=== PATIENT | female | born 1990 | race Caucasian/White ===

== ENCOUNTER 2020-07-02 02:05 | Emergency (ER) | payer MEDICAID ==
--- NOTE | 2020-07-02 02:07 | ED ---
General Adult HPI - General Stated complaint: FALL Time Seen by Provider: 07/02/20 02:06 - History of Present Illness Initial comments: Xiomara is a 29-year-old female who presents to the emergency department today via private vehicle for evaluation after apparent syncopal episode at home. History is provided by the patient and her boyfriend at bedside area patient reports that she had approximately 20 mg of medical marijuana and then was drinking alcohol. Boyfriend states that they were then having intercourse when his penis slipped out of her vagina and accidentally penetrated her anus, the patient immediately yelled out in pain, jumped out of bed to run to the bathroom and passed out on the floor, striking her head on the carpeted floor. Boyfriend states she was briefly unconscious which prompted him to call 911, however they refused transport to the hospital via EMS and arrived via private vehicle. Patient has no significant PMH. - Related Data Allergies Allergy/AdvReac Type Severity Reaction Status Date / Time No Known Allergies Allergy Verified 07/02/20 02:13 Review of Systems ROS Statement: Those systems with pertinent positive or pertinent negative responses have been documented in the HPI. ROS Other: All systems not noted in ROS Statement are negative. General Exam - General Exam Comments Initial Comments: Physical Exam GENERAL: Patient is well-developed and well-nourished. Patient is nontoxic and well- hydrated and is in no distress. HENT: Normocephalic, Atraumatic. TMs normal bilaterally no hemotympanum No fitzpatrick signs, no raccoon eyes There is a superficial laceration to the tragus of the left ear with some control bleeding, blood was cleaned from the canal no active bleeding EYES: PERRL, EOMI PULMONARY: Unlabored respirations. No audible rales rhonchi or wheezing was noted. CARDIOVASCULAR: There is a regular rate and rhythm without any murmurs gallops or rubs. ABDOMEN: Soft and nontender with normal bowel sounds. SKIN: Skin is clear with no lesions or rashes and otherwise unremarkable. : Deferred NEUROLOGIC: Patient is alert and oriented x3. Moving all extremities spontaneously MUSCULOSKELETAL: Normal extremities with adequate strength and full range of motion. No lower extremity swelling or edema. No calf tenderness. PSYCHIATRIC: Normal psychiatric evaluation. Course Vital Signs 08/25/20 08/25/20 08/25/20 02:10 03:00 04:00 Temperature 97.8 F Pulse Rate 89 70 82 Respiratory 18 14 14 Rate Blood Pressure 98/67 86/54 95/53 O2 Sat by Pulse 97 99 Oximetry 07/02/20 05:41 Temperature Pulse Rate 80 Respiratory 14 Rate Blood Pressure 107/64 O2 Sat by Pulse 99 Oximetry EKG Findings - EKG Comments: EKG Findings:: EKG was obtained due to complaint of seek a B, EKG was obtained at 2:31 AM, rate 78 rhythm is sinus there is a normal axis, there are normal intervals, NV 172, QRS 88, QTC 465 there are no acute ST elevations or depressions no evidence of acute ischemia, infarction or malignant arrhythmia. Medical Decision Making - Medical Decision Making The patient was seen and evaluated, history is obtained from the patient and boyfriend at bedside Patient admitted to ingesting edible marijuana, drinking alcohol and then she had a apparently vasovagal syncopal episode. She she did strike her head on the ground when this happened. She does have some bleeding from the tragus of the left ear, TM is normal there is no fitzpatrick signs or raccoon eyes Labs and head CT were ordered EKG was ordered due to complaint of PE, EKG had no abnormal findings Labs resulted with elevated alcohol level no other abnormalities Despite receiving 2 L of fluid patient r refused to provide a urine sample. I discussed with the patient that we cannot rule out or sensory UTI however she's comfortable the plan for discharge home without a urinalysis. Patient remained awake alert oriented, stable vital signs are her stay in the emergency department. Patient stable for discharge home. Boyfriend at bedside aware that the patient is still intoxicated and is comfortable taking her home at this time. - Lab Data Result diagrams: 07/02/20 02:31 07/02/20 02:31 Lab Results 07/02/20 07/02/20 Range/Units 02:31 02:31 WBC 6.1 (3.8-10.6) k/uL RBC 4.50 (3.80-5.40) m/uL Hgb 14.3 (11.4-16.0) gm/dL Hct 42.6 (34.0-46.0) % MCV 94.6 (80.0-100.0) fL MCH 31.7 (25.0-35.0) pg MCHC 33.5 (31.0-37.0) g/dL RDW 12.7 (11.5-15.5) % Plt Count 353 (150-450) k/uL Neutrophils % 60 % Lymphocytes % 32 % Monocytes % 4 % Eosinophils % 1 % Basophils % 1 % Neutrophils # 3.7 (1.3-7.7) k/uL Lymphocytes # 2.0 (1.0-4.8) k/uL Monocytes # 0.2 (0-1.0) k/uL Eosinophils # 0.0 (0-0.7) k/uL Basophils # 0.1 (0-0.2) k/uL Sodium 142 (137-145) mmol/L Potassium 3.6 (3.5-5.1) mmol/L Chloride 108 H (98-107) mmol/L Carbon Dioxide 24 (22-30) mmol/L Anion Gap 10 mmol/L BUN 5 L (7-17) mg/dL Creatinine 0.70 (0.52-1.04) mg/dL Est GFR (CKD-EPI)AfAm >90 (>60 ml/min/1.73 sqM) Est GFR (CKD-EPI)NonAf >90 (>60 ml/min/1.73 sqM) Glucose 120 H (74-99) mg/dL Calcium 9.1 (8.4-10.2) mg/dL Total Bilirubin 0.3 (0.2-1.3) mg/dL AST 25 (14-36) U/L ALT 8 (4-34) U/L Alkaline Phosphatase 73 (38-126) U/L Total Protein 7.7 (6.3-8.2) g/dL Albumin 4.7 (3.5-5.0) g/dL Serum Alcohol 203 H* mg/dL Disposition Clinical Impression: Vasovagal syncope, Alcohol intoxication, Marijuana intoxication Disposition: HOME SELF-CARE Condition: Stable Is patient prescribed a controlled substance at d/c from ED?: No Referrals: None,Stated [Primary Care Provider] - 1-2 days
[2020-07-02 02:13] VITALS: TEMP 97.8
[2020-07-02] MEDS ORDERED: SODIUM CHLORIDE 0.9% 1,000 ML IV STA (02:16)
[2020-07-02 02:54] LABS: Basophils # (A) 0.1 k/uL (0-0.2); Basophils % (A) 1 %; Eosinophils % (A) 1 %; HCT 42.6 % (34.0-46.0); HGB 14.3 gm/dL (11.4-16.0); Lymphocytes % (A) 32 %; MCH 31.7 pg (25.0-35.0); MCHC 33.5 g/dL (31.0-37.0); MCV 94.6 fL (80.0-100.0); Mean Platelet Volume 7.5; Monocytes # (A) 0.2 k/uL (0-1.0); Monocytes % (A) 4 %; Neutrophils # (A) 3.7 k/uL (1.3-7.7); Neutrophils % (A) 60 %; Platelet Count 353 k/uL (150-450); RDW 12.7 % (11.5-15.5); WBC 6.1 k/uL (3.8-10.6)
--- NOTE | 2020-07-02 02:59 | XR ---
EXAMINATION TYPE: XR chest 2V DATE OF EXAM: 07/02/2020 COMPARISON: NONE HISTORY: Syncope TECHNIQUE: 2 views FINDINGS: Heart and mediastinum are normal. Lungs are clear. Diaphragm is normal. Bony thorax appears normal. IMPRESSION: Normal chest.
[2020-07-02 03:08] LABS: ALT 8 U/L (4-34); AST 25 U/L (14-36); African American GFR (CKD) >90 (>60 ml/min/1.73 sqM); Albumin 4.7 g/dL (3.5-5.0); Alkaline Phosphatase 73 U/L (38-126); Anion Gap 10 mmol/L; Blood Urea Nitrogen 5 mg/dL (7-17); Calcium 9.1 mg/dL (8.4-10.2); Carbon Dioxide 24 mmol/L (22-30); Chloride 108 mmol/L (98-107); Glucose 120 mg/dL (74-99); Non-African American GFR(CKD) >90 (>60 ml/min/1.73 sqM); Potassium 3.6 mmol/L (3.5-5.1); Sodium 142 mmol/L (137-145); Total Bilirubin 0.3 mg/dL (0.2-1.3); Total Protein 7.7 g/dL (6.3-8.2)
--- NOTE | 2020-07-02 03:10 | CT ---
EXAMINATION TYPE: CT brain wo con DATE OF EXAM: 07/02/2020 COMPARISON: None HISTORY: Syncope, Fall CT DLP: 1087.4 mGycm Automated exposure control for dose reduction was used. The ventricles and sulci appear normal. There is no mass effect nor midline shift. There is no sign o f intracranial hemorrhage. Calvarium is intact. There is no evidence of cerebral edema. Skull base is intact. IMPRESSION: Normal unenhanced head CT scan.
[2020-07-02 03:15] LABS: Alcohol 203 mg/dL
[2020-07-02 03:25] VITALS: RESP 14
[2020-07-02] MEDS ORDERED: SODIUM CHLORIDE 0.9% 1,000 ML IV ONE (04:47)
[2020-07-02 05:43] VITALS: BP 107/64; PULSE 80
== END 2020-07-02 05:53 | disposition home or self-care (01) ==
LOC: EC 02:05
DX: S01.312A Laceration without foreign body of left ear, initial encounter (principal); R55 Syncope and collapse; F10.129 Alcohol abuse with intoxication, unspecified; F12.929 Cannabis use, unspecified with intoxication, unspecified; Y90.9 Presence of alcohol in blood, level not specified; W18.09XA Striking against other object with subsequent fall, initial encounter
CPT/HCPCS: 36415; 70450; 71046; 80053; 80320; 85025; 93005; 96360; 96361; 99284

== ENCOUNTER 2023-07-17 21:14 | Inpatient (IN) | payer MEDICAID, OTHER ==
[2023-07-17] MEDS ORDERED: SODIUM CHLORIDE 0.9% 1,000 ML IV ONE (22:08)
[2023-07-17 22:27] LABS: Appearance,Urine Clear (Clear); Bilirubin,Urine Negative (Negative); Blood,Urine Negative (Negative); Color,Urine Light Yellow; Glucose,Urine (UA) Negative (Negative); Ketones,Urine Negative (Negative); Leukocyte Esterase,Urine Small (Negative); Mucus,Urine Occasional /hpf; Nitrite,Urine Negative (Negative); Protein,Urine Negative (Negative); RBC,Urine 1 /hpf (0-5); Specific Gravity,Urine 1.015 (1.001-1.035); Squamous Epithelial Cell,Urine 4 /hpf (0-4); Urobilinogen,Urine <2.0 mg/dL (<2.0); WBC,Urine 5 /hpf (0-5)
[2023-07-17 22:36] LABS: Amphetamine Screen,Urine Detected (NotDetected); Barbiturate Screen,Urine Not Detected (NotDetected); Benzodiazepines Screen,Urine Not Detected (NotDetected); Cocaine Screen,Urine Not Detected (NotDetected); Methadone Screen, Urine Not Detected (NotDetected); Opiate Screen,Urine Not Detected (NotDetected); Oxycodone Screen, Urine Not Detected (NotDetected); Phencyclidine Screen,Urine Not Detected (NotDetected); Tricyclic Antidepressant,Urine Not Detected (NotDetected); Urn Cannabinoid Scrn Detected (NotDetected)
[2023-07-17 22:40] LABS: Basophils % (A) 1 %; Eosinophils # (A) 0.2 k/uL (0-0.7); Eosinophils % (A) 2 %; HGB 13.1 gm/dL (11.4-16.0); Lymphocytes # (A) 2.1 k/uL (1.0-4.8); Lymphocytes % (A) 31 %; MCH 30.5 pg (25.0-35.0); MCHC 32.8 g/dL (31.0-37.0); MCV 92.9 fL (80.0-100.0); Mean Platelet Volume 7.9; Monocytes # (A) 0.4 k/uL (0-1.0); Monocytes % (A) 6 %; Neutrophils # (A) 3.8 k/uL (1.3-7.7); Neutrophils % (A) 58 %; Platelet Count 316 k/uL (150-450); RBC 4.31 m/uL (3.80-5.40); RDW 12.5 % (11.5-15.5); WBC 6.6 k/uL (3.8-10.6)
[2023-07-17 22:47] LABS: African American GFR (CKD) >90 (>60 ml/min/1.73 sqM); Anion Gap 10 mmol/L; Blood Urea Nitrogen 14 mg/dL (7-17); Calcium 9.8 mg/dL (8.4-10.2); Carbon Dioxide 26 mmol/L (22-30); Chloride 102 mmol/L (98-107); Glucose 88 mg/dL (74-99); Non-African American GFR(CKD) >90 (>60 ml/min/1.73 sqM); Potassium 4.3 mmol/L (3.5-5.1); Sodium 138 mmol/L (137-145)
--- NOTE | 2023-07-18 09:17 | ED ---
Altered Mental Status HPI <Robby Fernandes - Last Filed: 07/18/23 15:22> - General Source: police Mode of arrival: EMS Limitations: altered mental status <Sharri Jovel - Last Filed: 07/24/23 17:15> - General Chief Complaint: Altered Mental Status Stated Complaint: Mental Health Time Seen by Provider: 07/17/23 21:20 - History of Present Illness Initial Comments: 32-year-old female with past medical history of depression who presents to the emergency department with abnormal behavior. Police to accompany the patient. States that she was outside wandering. She was with a another younger gentleman who denied that he had known the patient for more than one day. Patient cannot answer any questions appropriately she demonstrates tangential speech. Has difficulty concentrating and conversing. They were unsure if the patient had been drinking or used any drugs. She denies use of either. They did call her grandmother who states that this is not the normal mentation for the patient. The patient remarks that she thinks she is dehydrated. Also reports to concern for a urinary tract infection. no other alleviating, precipitating or modifying factors (Sharri Jovel) - Related Data Home Medications Medication Instructions Recorded Confirmed Dextroamphetamine/Amphetamine 10 mg PO DAILY@1200 07/18/23 07/18/23 [Adderall] Dextroamphetamine/Amphetamine 20 mg PO DAILY 07/18/23 07/18/23 [Adderall] Escitalopram [Lexapro] 20 mg PO DAILY 07/18/23 07/18/23 Omeprazole [PriLOSEC] 20 mg PO HS 07/18/23 07/18/23 Allergies Allergy/AdvReac Type Severity Reaction Status Date / Time No Known Allergies Allergy Verified 07/02/20 02:13 Review of Systems ROS Other: All systems not noted in ROS Statement are negative. <Robby Fernandes - Last Filed: 07/18/23 15:22> ROS Other: All systems not noted in ROS Statement are negative. <Sharri Jovel - Last Filed: 07/24/23 17:15> ROS Statement: Those systems with pertinent positive or pertinent negative responses have been documented in the HPI. Past Medical History Past Medical History: No Reported History History of Any Multi-Drug Resistant Organisms: None Reported Past Surgical History: No Surgical Hx Reported Past Psychological History: No Psychological Hx Reported Smoking Status: Former smoker Past Alcohol Use History: Occasional Past Drug Use History: Marijuana <Sharri Jovel - Last Filed: 07/24/23 17:15> General Exam Limitations: altered mental status General appearance: alert, anxious Head exam: Present: atraumatic, normocephalic, normal inspection Eye exam: Present: normal appearance, PERRL, EOMI. Absent: scleral icterus, conjunctival injection, periorbital swelling ENT exam: Present: normal exam, mucous membranes moist Neck exam: Present: normal inspection. Absent: tenderness, meningismus, lymphadenopathy Respiratory exam: Present: normal lung sounds bilaterally. Absent: respiratory distress, wheezes, rales, rhonchi, stridor Cardiovascular Exam: Present: regular rate, normal rhythm, normal heart sounds. Absent: systolic murmur, diastolic murmur, rubs, gallop, clicks Psychiatric exam: Present: anxious, manic <Sharri Jovel - Last Filed: 07/24/23 17:15> Course Vital Signs 07/18/23 07/18/23 02:00 15:20 Temperature 98.1 F 98.0 F Pulse Rate 65 67 Respiratory 16 18 Rate Blood Pressure 108/71 99/61 O2 Sat by Pulse 65 L 98 Oximetry Medical Decision Making - Lab Data Result diagrams: 07/17/23 22:07 07/17/23 22:07 <Robby Fernandes - Last Filed: 07/18/23 15:22> - Lab Data Result diagrams: 07/17/23 22:07 07/17/23 22:07 <Sharri Jovel Tia - Last Filed: 07/24/23 17:15> - Medical Decision Making Patient was seen by mental health services with plans for admission. I did discuss this with mental nurse. Patient reevaluated by myself. Positive clinical certificate completed. Patient will be admitted to psychiatric floor. (Robby Fernandes) Was pt. sent in by a medical professional or institution (, PA, SLATE WORKER, urgent care, hospital, or half-way...) When possible be specific @ -Police Did you speak to anyone other than the patient for history (EMS, parent, family, police, friend...)? What history was obtained from this source @ -Police provide history Did you review nursing and triage notes (agree or disagree)? Why? @ -I reviewed and agree with nursing and triage notes Were old charts reviewed (outside hosp., previous admission, EMS record, old EKG, old radiological studies, urgent care reports/EKG's, half-way records)? Report findings @ -No old charts were reviewed Differential Diagnosis (chest pain, altered mental status, abdominal pain women, abdominal pain men, vaginal bleeding, weakness, fever, dyspnea, syncope, headache, dizziness, GI bleed, back pain, seizure, CVA, palpatations, mental health, musculoskeletal)? @ -Differential Mental Health Depression, anxiety, bipolar, psychosis, schizophrenia, borderline personality, situational depression, adjustment disorder, behavioral disorder, brain tumor, malingering, substance abuse, encephalopathy, medication reaction, dementia, hypothyroidism, degenerative neurologic disorder, lupus.... This is not meant to be all-inclusive list EKG interpreted by me (3pts min.). @ -Not done X-rays interpreted by me (1pt min.). @ -None done CT interpreted by me (1pt min.). @ -None done U/S interpreted by me (1pt. min.). @ -None done What testing was considered but not performed or refused? (CT, X-rays, U/S, labs )? Why? @ -None What meds were considered but not given or refused? Why? @ -None Did you discuss the management of the patient with other professionals (professionals i.e. , PA, SLATE WORKER, lab, RT, psych nurse, psychosocial rehabilitation counselor, foot and ankle surgeon, teacher, helicopter officer, onsite case manager)? Give summary @ -Spoke with EPS who will evaluate the patient tomorrow Was smoking cessation discussed for >3mins.? @ -No Was critical care preformed (if so, how long)? @ -No Were there social determinants of health that impacted care today? How? (Homelessness, low income, unemployed, alcoholism, drug addiction, transportation, low edu. Level, literacy, decrease access to med. care, assisted, rehab)? @ -No Was there de-escalation of care discussed even if they declined (Discuss DNR or withdrawal of care, Hospice)? DNR status @ -No What co-morbidities impacted this encounter? (DM, HTN, Smoking, COPD, CAD, Cancer, CVA, ARF, Chemo, Hep., AIDS, mental health diagnosis, sleep apnea, morbid obesity)? @ -None Was patient admitted / discharged? Hospital course, mention meds given and route, prescriptions, significant lab abnormalities, going to OR and other pertinent info. @ -Upon arrival patient was placed into room 14. Thorough history and physical exam is performed. Patient is medically clear for evaluation. She is awaiting EPS evaluation in stable condition Undiagnosed new problem with uncertain prognosis? @ -yes Drug Therapy requiring intensive monitoring for toxicity (Heparin, Nitro, Insulin, Cardizem)? @ -No Were any procedures done? @ -No Diagnosis/symptom? @ -acute manic behavior Acute, or Chronic, or Acute on Chronic? @ -acute Uncomplicated (without systemic symptoms) or Complicated (systemic symptoms)? @ -complicated Side effects of treatment? @ -No Exacerbation, Progression, or Severe Exacerbation? @ -No Poses a threat to life or bodily function? How? (Chest pain, [place], [place], pneumonia, PE, COPD, DKA, ARF, appy, cholecystitis, CVA, Diverticulitis, Homicidal, Suicidal, threat to staff... and all critical care pts) @ -No (Sharri Jovel) - Lab Data Lab Results 07/17/23 07/17/23 07/17/23 Range/Units 22:07 22:07 22:07 WBC 6.6 (3.8-10.6) k/uL RBC 4.31 (3.80-5.40) m/uL Hgb 13.1 (11.4-16.0) gm/dL Hct 40.0 (34.0-46.0) % MCV 92.9 (80.0-100.0) fL MCH 30.5 (25.0-35.0) pg MCHC 32.8 (31.0-37.0) g/dL RDW 12.5 (11.5-15.5) % Plt Count 316 (150-450) k/uL MPV 7.9 Neutrophils % 58 % Lymphocytes % 31 % Monocytes % 6 % Eosinophils % 2 % Basophils % 1 % Neutrophils # 3.8 (1.3-7.7) k/uL Lymphocytes # 2.1 (1.0-4.8) k/uL Monocytes # 0.4 (0-1.0) k/uL Eosinophils # 0.2 (0-0.7) k/uL Basophils # 0.0 (0-0.2) k/uL Sodium (137-145) mmol/L Potassium (3.5-5.1) mmol/L Chloride (98-107) mmol/L Carbon Dioxide (22-30) mmol/L Anion Gap mmol/L BUN (7-17) mg/dL Creatinine (0.52-1.04) mg/dL Est GFR (CKD-EPI)AfAm (>60 ml/min/1.73 sqM) Est GFR (CKD-EPI)NonAf (>60 ml/min/1.73 sqM) Glucose (74-99) mg/dL Estimated Ave Glu mg/dL mg/dL Hemoglobin A1c (<=6.0) % Calcium (8.4-10.2) mg/dL TSH (0.465-4.680) mIU/L Urine Color Light Yellow Urine Appearance Clear (Clear) Urine pH 6.0 (5.0-8.0) Ur Specific [place] 1.015 (1.001-1.035) Urine Protein Negative (Negative) Urine Glucose (UA) Negative (Negative) Urine Ketones Negative (Negative) Urine Blood Negative (Negative) Urine Nitrite Negative (Negative) Urine Bilirubin Negative (Negative) Urine Urobilinogen <2.0 (<2.0) mg/dL Ur Leukocyte Esterase Small H (Negative) Urine RBC 1 (0-5) /hpf Urine WBC 5 (0-5) /hpf Ur Squamous Epith Cells 4 (0-4) /hpf Urine Mucus Occasional H (None) /hpf Urine HCG, Qual Not Detected (Not Detectd) Urine Opiates Screen Not Detected (NotDetected) Ur Oxycodone Screen Not Detected (NotDetected) Urine Methadone Screen Not Detected (NotDetected) Ur Propoxyphene Screen Not Detected (NotDetected) Ur Barbiturates Screen Not Detected (NotDetected) U Tricyclic Antidepress Not Detected (NotDetected) Ur Phencyclidine Scrn Not Detected (NotDetected) Ur Amphetamines Screen Detected H (NotDetected) U Methamphetamines Scrn Not Detected (NotDetected) U Benzodiazepines Scrn Not Detected (NotDetected) Urine Cocaine Screen Not Detected (NotDetected) U Marijuana (THC) Screen Detected H (NotDetected) Coronavirus (PCR) (Not Detectd) 07/17/23 07/17/23 07/17/23 Range/Units 22:07 22:07 22:07 WBC (3.8-10.6) k/uL RBC (3.80-5.40) m/uL Hgb (11.4-16.0) gm/dL Hct (34.0-46.0) % MCV (80.0-100.0) fL MCH (25.0-35.0) pg MCHC (31.0-37.0) g/dL RDW (11.5-15.5) % Plt Count (150-450) k/uL MPV Neutrophils % % Lymphocytes % % Monocytes % % Eosinophils % % Basophils % % Neutrophils # (1.3-7.7) k/uL Lymphocytes # (1.0-4.8) k/uL Monocytes # (0-1.0) k/uL Eosinophils # (0-0.7) k/uL Basophils # (0-0.2) k/uL Sodium 138 (137-145) mmol/L Potassium 4.3 (3.5-5.1) mmol/L Chloride 102 (98-107) mmol/L Carbon Dioxide 26 (22-30) mmol/L Anion Gap 10 mmol/L BUN 14 (7-17) mg/dL Creatinine 0.76 (0.52-1.04) mg/dL Est GFR (CKD-EPI)AfAm >90 (>60 ml/min/1.73 sqM) Est GFR (CKD-EPI)NonAf >90 (>60 ml/min/1.73 sqM) Glucose 88 (74-99) mg/dL Estimated Ave Glu mg/dL 111 mg/dL Hemoglobin A1c 5.5 (<=6.0) % Calcium 9.8 (8.4-10.2) mg/dL TSH 1.320 (0.465-4.680) mIU/L Urine Color Urine Appearance (Clear) Urine pH (5.0-8.0) Ur Specific [place] (1.001-1.035) Urine Protein (Negative) Urine Glucose (UA) (Negative) Urine Ketones (Negative) Urine Blood (Negative) Urine Nitrite (Negative) Urine Bilirubin (Negative) Urine Urobilinogen (<2.0) mg/dL Ur Leukocyte Esterase (Negative) Urine RBC (0-5) /hpf Urine WBC (0-5) /hpf Ur Squamous Epith Cells (0-4) /hpf Urine Mucus (None) /hpf Urine HCG, Qual (Not Detectd) Urine Opiates Screen (NotDetected) Ur Oxycodone Screen (NotDetected) Urine Methadone Screen (NotDetected) Ur Propoxyphene Screen (NotDetected) Ur Barbiturates Screen (NotDetected) U Tricyclic Antidepress (NotDetected) Ur Phencyclidine Scrn (NotDetected) Ur Amphetamines Screen (NotDetected) U Methamphetamines Scrn (NotDetected) U Benzodiazepines Scrn (NotDetected) Urine Cocaine Screen (NotDetected) U Marijuana (THC) Screen (NotDetected) Coronavirus (PCR) (Not Detectd) 07/18/23 Range/Units 15:22 WBC (3.8-10.6) k/uL RBC (3.80-5.40) m/uL Hgb (11.4-16.0) gm/dL Hct (34.0-46.0) % MCV (80.0-100.0) fL MCH (25.0-35.0) pg MCHC (31.0-37.0) g/dL RDW (11.5-15.5) % Plt Count (150-450) k/uL MPV Neutrophils % % Lymphocytes % % Monocytes % % Eosinophils % % Basophils % % Neutrophils # (1.3-7.7) k/uL Lymphocytes # (1.0-4.8) k/uL Monocytes # (0-1.0) k/uL Eosinophils # (0-0.7) k/uL Basophils # (0-0.2) k/uL Sodium (137-145) mmol/L Potassium (3.5-5.1) mmol/L Chloride (98-107) mmol/L Carbon Dioxide (22-30) mmol/L Anion Gap mmol/L BUN (7-17) mg/dL Creatinine (0.52-1.04) mg/dL Est GFR (CKD-EPI)AfAm (>60 ml/min/1.73 sqM) Est GFR (CKD-EPI)NonAf (>60 ml/min/1.73 sqM) Glucose (74-99) mg/dL Estimated Ave Glu mg/dL mg/dL Hemoglobin A1c (<=6.0) % Calcium (8.4-10.2) mg/dL TSH (0.465-4.680) mIU/L Urine Color Urine Appearance (Clear) Urine pH (5.0-8.0) Ur Specific [place] (1.001-1.035) Urine Protein (Negative) Urine Glucose (UA) (Negative) Urine Ketones (Negative) Urine Blood (Negative) Urine Nitrite (Negative) Urine Bilirubin (Negative) Urine Urobilinogen (<2.0) mg/dL Ur Leukocyte Esterase (Negative) Urine RBC (0-5) /hpf Urine WBC (0-5) /hpf Ur Squamous Epith Cells (0-4) /hpf Urine Mucus (None) /hpf Urine HCG, Qual (Not Detectd) Urine Opiates Screen (NotDetected) Ur Oxycodone Screen (NotDetected) Urine Methadone Screen (NotDetected) Ur Propoxyphene Screen (NotDetected) Ur Barbiturates Screen (NotDetected) U Tricyclic Antidepress (NotDetected) Ur Phencyclidine Scrn (NotDetected) Ur Amphetamines Screen (NotDetected) U Methamphetamines Scrn (NotDetected) U Benzodiazepines Scrn (NotDetected) Urine Cocaine Screen (NotDetected) U Marijuana (THC) Screen (NotDetected) Coronavirus (PCR) Not Detected (Not Detectd) Disposition Is patient prescribed a controlled substance at d/c from ED?: No Time of Disposition: 15:23 <Robby Fernandes - Last Filed: 07/18/23 15:22> <Sharri Jovel - Last Filed: 07/24/23 17:15> Clinical Impression: [place] Disposition: TRANSFER TO PSYCH HOSP/UNIT
[2023-07-18] MEDS ORDERED: ACETAMINOPHEN TAB 325 MG TAB PO PRN (16:20)
[2023-07-18] MEDS ORDERED: haloperidoL 5 MG TAB PO PRN (16:23)
[2023-07-18] MEDS ORDERED: LORazepam 2 MG/ML INJ IM PRN (16:23)
[2023-07-18] MEDS ORDERED: HALOPERIDOL LACTATE 5 MG/ML 1 ML VIAL IM PRN (16:23)
[2023-07-18] MEDS: MAG HYDROX/AL HYDROX/SIMETH 30 ML CUP PO PRN (18:01)
[2023-07-19] MEDS: ESCITALOPRAM 20 MG TAB PO SCH (08:34)
[2023-07-19] MEDS: NICOTINE 14MG/24HR PATCH TRANSDERM SCH (08:35)
--- NOTE | 2023-07-19 11:54 | P.HP ---
Psychiatric H&P - . H&P Date: 07/19/23 History & Physical: Allergies Allergy/AdvReac Type Severity Reaction Status Date / Time No Known Allergies Allergy Verified 07/02/20 02:13 Vital Signs Temp 97.4 F L 07/19/23 08:42 Pulse 89 07/19/23 08:42 Resp 15 07/19/23 08:42 BP 116/68 07/19/23 08:42 Pulse Ox 100 07/19/23 08:42 FiO2 Intake & Output 07/18/23 07/19/23 07/19/23 18:59 06:59 18:59 Weight 63.049 kg Laboratory Last Values WBC 6.6 k/uL (3.8-10.6) 07/17/23 22:07 RBC 4.31 m/uL (3.80-5.40) 07/17/23 22:07 Hgb 13.1 gm/dL (11.4-16.0) 07/17/23 22:07 Hct 40.0 % (34.0-46.0) 07/17/23 22:07 MCV 92.9 fL (80.0-100.0) 07/17/23 22:07 MCH 30.5 pg (25.0-35.0) 07/17/23 22:07 MCHC 32.8 g/dL (31.0-37.0) 07/17/23 22:07 RDW 12.5 % (11.5-15.5) 07/17/23 22:07 Plt Count 316 k/uL (150-450) 07/17/23 22:07 MPV 7.9 07/17/23 22:07 Neutrophils % 58 % 07/17/23 22:07 Lymphocytes % 31 % 07/17/23 22:07 Monocytes % 6 % 07/17/23 22:07 Eosinophils % 2 % 07/17/23 22:07 Basophils % 1 % 07/17/23 22:07 Neutrophils # 3.8 k/uL (1.3-7.7) 07/17/23 22:07 Lymphocytes # 2.1 k/uL (1.0-4.8) 07/17/23 22:07 Monocytes # 0.4 k/uL (0-1.0) 07/17/23 22:07 Eosinophils # 0.2 k/uL (0-0.7) 07/17/23 22:07 Basophils # 0.0 k/uL (0-0.2) 07/17/23 22:07 Sodium 138 mmol/L (137-145) 07/17/23 22:07 Potassium 4.3 mmol/L (3.5-5.1) 07/17/23 22:07 Chloride 102 mmol/L (98-107) 07/17/23 22:07 Carbon Dioxide 26 mmol/L (22-30) 07/17/23 22:07 Anion Gap 10 mmol/L 07/17/23 22:07 BUN 14 mg/dL (7-17) 07/17/23 22:07 Creatinine 0.76 mg/dL (0.52-1.04) 07/17/23 22:07 Est GFR (CKD-EPI)AfAm >90 (>60 ml/min/1.73 sqM) 07/17/23 22:07 Est GFR (CKD-EPI)NonAf >90 (>60 ml/min/1.73 sqM) 07/17/23 22:07 Glucose 88 mg/dL (74-99) 07/17/23 22:[address] Glu mg/dL 111 mg/dL 07/17/23 22:07 Hemoglobin A1c 5.5 % (<=6.0) 07/17/23 22:07 Calcium 9.8 mg/dL (8.4-10.2) 07/17/23 22:07 TSH 1.320 mIU/L (0.465-4.680) 07/17/23 22:07 Urine Color Light Yellow 07/17/23 22:07 Urine Appearance Clear (Clear) 07/17/23 22:07 Urine pH 6.0 (5.0-8.0) 07/17/23 22:07 Ur Specific [place] 1.015 (1.001-1.035) 07/17/23 22:07 Urine Protein Negative (Negative) 07/17/23 22:07 Urine Glucose (UA) Negative (Negative) 07/17/23 22:07 Urine Ketones Negative (Negative) 07/17/23 22:07 Urine Blood Negative (Negative) 07/17/23 22:07 Urine Nitrite Negative (Negative) 07/17/23 22:07 Urine Bilirubin Negative (Negative) 07/17/23 22:07 Urine Urobilinogen <2.0 mg/dL (<2.0) 07/17/23 22:07 Ur Leukocyte Esterase Small (Negative) H 07/17/23 22:07 Urine RBC 1 /hpf (0-5) 07/17/23 22:07 Urine WBC 5 /hpf (0-5) 07/17/23 22:07 Ur Squamous Epith Cells 4 /hpf (0-4) 07/17/23 22:07 Urine Mucus Occasional /hpf (None) H 07/17/23 22:07 Urine HCG, Qual Not Detected (Not Detectd) 07/17/23 22:07 Urine Opiates Screen Not Detected (NotDetected) 07/17/23 22:07 Ur Oxycodone Screen Not Detected (NotDetected) 07/17/23 22:07 Urine Methadone Screen Not Detected (NotDetected) 07/17/23 22:07 Ur Propoxyphene Screen Not Detected (NotDetected) 07/17/23 22:07 Ur Barbiturates Screen Not Detected (NotDetected) 07/17/23 22:07 U Tricyclic Antidepress Not Detected (NotDetected) 07/17/23 22:07 Ur Phencyclidine Scrn Not Detected (NotDetected) 07/17/23 22:07 Ur Amphetamines Screen Detected (NotDetected) H 07/17/23 22:07 U Methamphetamines Scrn Not Detected (NotDetected) 07/17/23 22:07 U Benzodiazepines Scrn Not Detected (NotDetected) 07/17/23 22:07 Urine Cocaine Screen Not Detected (NotDetected) 07/17/23 22:07 U Marijuana (THC) Screen Detected (NotDetected) H 07/17/23 22:07 Coronavirus (PCR) Not Detected (Not Detectd) 07/18/23 15:22 07/19/23 11:46 IDENTIFYING DATA: Patient is a 32-year-old female currently lives with her grandmother in a house, she is single, 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 HPI: Patient presented to the hospital urgently for depression and altered mental status. Patient apparently was wandering in the streets, she was picked up by police, she was having poor concentration. Patient was petitioned by principal gifts officer and clinically certed. Patient was difficult to redirect during conversation, was gazing around the room several times, tried to read words off of the wall. She was getting at her skin and fairly distracted. She claimed that she was brought in for a "safety check" she had very poor insight poor judgment and poor reality testing. She claims that she was feeling depressed and having suicidal thoughts for coming in the hospital. She was wandering around downtown and states that "it's okay to wander". She claims that she was talking to someone however did not ever was. She believes that she was friends with the special police. She claims that she was "just dreaming" and was fairly illogical and bizarre. She poor concentration during the interview. She was denying any paranoia, was fairly superficial, was argumentative about medications and did not want to take them. Claims that her sleep and appetite are fair. Patient denies any suicidal or homicidal ideations intent or plan. At this time patient denies any auditory or visual hallucinations. Patient denies any flight of ideas racing thoughts and increased in goal directed behavior. Patient admits to using marijuana heavily approximately 3-4 joints a day. States that she also uses mushrooms however was fairly vague about how often she uses it. Denies any other recreational drug use PAST PSYCHIATRIC HISTORY: Patient states that she has a history of depression and anxiety. Patient is currently on Lexapro 20 mg daily. Patient denies any previous psychiatric hospitalizations. Patient denies any psychiatric outpatient follow-up, never did state that she is to follow-up with the nurse practitioner at [facility]. Patient denies any history of suicide attempts in the past. PMH:Past Medical History: No Reported History History of Any Multi-Drug Resistant Organisms: None Reported Past Surgical History: No Surgical Hx Reported Past Psychological History: No Psychological Hx Reported Smoking Status: Former smoker Past Alcohol Use History: Occasional Past Drug Use History: Marijuana ALLERGIES: as per EMR CHEMICAL DEPENDENCY HISTORY: as per HPI FAMILY PSYCHIATRIC/SUBSTANCE USE HISTORY: Claims that her mother has bipolar she believes SOCIAL HISTORY: Patient was born and raised in [place] [facility], states that she pleaded to bachelor's degree, 1 in imageloop arts and 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 She denies any legal history, clear that she currently lives with her grandmother in a house, she is single, she does not have any kids. 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 MENTAL STATUS EXAM: General Appearance: Patient appears to be thin, disheveled hair, bizarre and responding to internal stimuli, stated age is alert, difficult to redirect. Patient appears to have poor hygiene and grooming. Behavior: Patient is seated without any agitated behavior. Argumentative at times and responding to internal stimuli Speech: Patient's speech is fluent and nonpressured. [place], vague and superficial Mood/Affect: Patient reports their mood is depressed, affect is congruent and constricted. Suicidality/Homicidality: Patient denies having any homicidal ideation intent or plan. Denies any suicidal ideations intent or plan Perceptions: Patient denies any visual hallucinations and denies any auditory hallucinations Though content/process: Illogical, loose associations. Bizarre. Memory and concentration: AOX3, grossly intact for the purposes of this session. Cannot spell "WORLD" backwards Judgment and insight: poor STRENGTHS/WEAKNESSES: strength is that patient is resilient. Weakness is that p atient has poor judgment and is impulsive INTELLECT: average IMPRESSIONS: Psychosis unspecified Hallucinogen abuse Cannabis use disorder severe History of depression and anxiety PLAN: -Patient is admitted under involuntary status to MHU for stabilization of psychiatric symptoms and safety. Patient has not signed adult voluntary form and medication consent and is placed in patient's chart. A second certification was completed and along with petition will be filed for court. -Medications : Will start patient on Risperdal 0.5 mg twice a day for psychosis, continue with Lexapro 20 mg daily for mood/anxiety. -Ativan and Haldol PRN for agitation/aggression -Patient was informed of the risks, benefits and side effects of the medication -Internal Medicine consult to perform medical evaluation and physical. -NRT - not need to this patient does not smoke -SW on board for discharge planning. Encourage patient to participate in groups to work on coping skills. Will await deferral and court date.
[2023-07-19] MEDS: risperiDONE 0.5 MG TAB PO SCH ×2 (12:44→21:33)
--- NOTE | 2023-07-19 15:19 | P.CONS ---
History of Present Illness - Reason for Consult Consult date: 07/19/23 Medical history of depression - History of Present Illness This is a 32-year-old female who presented to the emergency department with the police under position for bizarre behavior and roaming the streets. Patient was involuntarily signed in to [address]. under petition for psychiatric evaluation. Patient does report she has history of depression and takes antidepressant medications and follows with Dr. Dominguez in the outpatient setting. Patient reports she recently used marijuana along with mushrooms and denies alcohol use since 2020 and reports she does not smoke cigarettes but does use vaping device. When asked if patient was suicidal or thoughts of wanting to harm herself she said "not today". During conversation patient denied chest pain or shortness of breath and exam showed lung sounds were clear to auscultation. Patient reports she had a rash on her back that has resolved and she was not sure if it was shingles. There are no vesicles or abnormalities noted on the back during exam. Review Of Systems: Constitutional: No fever, no chills, no night sweats. No weight change. No weakness, fatigue or lethargy. No daytime sleepiness. EENT: No headache. No blurred vision or double vision, no loss of vision. No loss of Hearing, no ringing in the ears, no dizziness. No nasal drainage or congestion. No epistaxis. No sore throat. Lungs: No shortness of breath, cough, no sputum production. No wheezing. Cardiovascular: No chest pain, no lower extremity edema. No palpitations. No paroxysmal nocturnal dyspnea. No orthopnea. No lightheadedness or dizziness. No syncopal episodes. Abdominal: No abdominal pain. No nausea, vomiting. No diarrhea. No constipation. No bloody or tarry stools.. No loss of appetite. Genitourinary: No dysuria, increased frequency, urgency. No urinary retention. Musculoskeletal: No myalgias. No muscle weakness, no gait dysfunction, no frequent falls. No back pain. No neck pain. Integumentary: No wounds, no lesions. No rash or pruritus. No unusual br uising. No change in hair or nails. Neurologic: No aphasia. No facial droop. No change in mentation. No head injury. No headache. No paralysis. No paresthesia. Psychiatric: Reports increased depression, reports some anxiety. No mood swings. Endocrine: No abnormal blood sugars. No weight change. No excessive sweating or thirst. No cold intolerance. PHYSICAL EXAMINATION: GENERAL: The patient is alert and oriented x3, will not provide any eye contact, short conversation, Well developed, well nourished. HEENT: Pupils are round and equally reacting to light. EOMI. no scleral icterus. No conjunctival pallor. Normocephalic, atraumatic. No pharyngeal erythema. No thyromegaly. CARDIOVASCULAR: S1 and S2 muffled PULMONARY: Breath sounds clear to auscultation with no wheezing or rhonchi noted. ABDOMEN: soft. Nontender on exam. non-distended, normoactive bowel sounds. No palpable organomegaly. MUSCULOSKELETAL: No joint swelling or deformity. EXTREMITIES: No cyanosis, clubbing, or pedal edema. NEUROLOGICAL: Gross neurological examination did not reveal any focal deficits. SKIN: No rashes. Assessment: acute psychosis history of depression suicidal ideation Former smoker, reports continues to use a vape THC use Psychedelic use, including mushrooms Full code Plan: Patient has involuntary been petitioned by the police for bizarre behavior and walking around and did report some suicidal ideation with history of depression. All medications reviewed and resumed Encourage the patient to attend group therapy sessions and compliance with medications Patient follow-up with primary care provider on discharge in compliance with psychiatric evaluation Thank you kindly for this consultation. The impression and plan of care has been dictated by Jolanta River, nurse practitioner as directed. Dr. Carmela MD I have performed a history and examination and MDM of this patient, discussed the same with the dictator, and agree with the dictator's assessment and plan as written ,documented as a scribe. Based on total visit time, I have performed more than 50% of the visit. Any additional findings or plans will be noted. Past Medical History Past Medical History: No Reported History History of Any Multi-Drug Resistant Organisms: None Reported Past Surgical History: No Surgical Hx Reported Past Psychological History: No Psychological Hx Reported Smoking Status: Former smoker Past Alcohol Use History: Occasional Past Drug Use History: Marijuana Medications and Allergies Home Medications Medication Instructions Recorded Confirmed Type Dextroamphetamine/Amphetamine 10 mg PO DAILY@1200 07/18/23 07/18/23 History [Adderall] Dextroamphetamine/Amphetamine 20 mg PO DAILY 07/18/23 07/18/23 History [Adderall] Escitalopram [Lexapro] 20 mg PO DAILY 07/18/23 07/18/23 History Omeprazole [PriLOSEC] 20 mg PO HS 07/18/23 07/18/23 History Allergies Allergy/AdvReac Type Severity Reaction Status Date / Time No Known Allergies Allergy Verified 07/02/20 02:13 Physical Exam Vitals: Vital Signs Temp Pulse Pulse Resp BP BP Pulse Ox 07/19/23 08:42 97.4 F L 89 15 116/68 100 07/18/23 16:49 97.7 F 100 17 126/77 100 07/18/23 15:20 98.0 F 67 18 99/61 98 Intake and Output 07/18/23 07/19/23 07/19/23 22:59 06:59 14:59 Other: Weight 63.049 kg Results CBC & Chem 7: 07/17/23 22:07 07/17/23 22:07 Assessment and Plan Time with Patient: Less than 30
[2023-07-19 15:52] VITALS: BMI 23.1
[2023-07-19] MEDS: MAG HYDROX/AL HYDROX/SIMETH 30 ML CUP PO PRN (20:13)
[2023-07-20] MEDS: ESCITALOPRAM 20 MG TAB PO SCH ×2 (08:57→20:48)
[2023-07-20] MEDS: risperiDONE 0.5 MG TAB PO SCH (08:57)
[2023-07-20] MEDS: NICOTINE 14MG/24HR PATCH TRANSDERM SCH (08:58)
--- NOTE | 2023-07-20 11:07 | P.PN ---
Progress Note - Text Progress Note Date: 07/20/23 Interval history: Patient was seen this morning sleeping in her bed and was awoken by poem writer. she continues to be difficult to redirect and mildly bizarre today with regards to interaction and behavior. she asked if poem writer can speak with her in her office. She continues to be responding to internal stimuli, looking around the room at times. She asked the poem writer can "read to palms". She claims that she is feeling fairly tired with the medications and has been sleeping most of the day. She is denying any other adverse reactions. Continues to have fairly poor insight and judgment. Continues to be off topic and illogical at times. She states that she is agreeable to continue with medications, has not spoken with her criminal defense attorney. He spoke more about the court process. She is denying any depression or anxiety at this time. Her insight and judgment remain poor. She has not been going to many groups. She is denying any auditory or visual hallucinations, denying any suicidal or homicidal ideations intent or plan. Mental status examination: General Appearance: Patient appears to be thin, disheveled hair, bizarre and responding to internal stimuli, stated age is alert. Patient appears to have poor hygiene and grooming. Behavior: Patient is seated without any agitated behavior. Bizarre and responding to internal stimuli Speech: Patient's speech is fluent and nonpressured. [place], vague Mood/Affect: Patient reports their mood is "a bit better", affect is congruent and constricted. Suicidality/Homicidality: Patient denies having any homicidal ideation intent or plan. Denies any suicidal ideations intent or plan Perceptions: Patient denies any visual hallucinations and denies any auditory hallucinations Though content/process: Illogical, loose associations. Bizarre. Memory and concentration: AOX3, grossly intact for the purposes of this session Judgment and insight: poor IMPRESSIONS: Psychosis unspecified Hallucinogen abuse Cannabis use disorder severe History of depression and anxiety PLAN: -Patient is admitted under involuntary status to MHU for stabilization of psychiatric symptoms and safety. Patient has not signed adult voluntary form and medication consent and is placed in patient's chart. A second certification was completed and along with petition will be filed for court. -Medications : Change Risperdal 1 mg daily at bedtime for psychosis, change Lexapro 20 mg daily at bedtime for mood/anxiety. -Ativan and Haldol PRN for agitation/aggression -NRT - not need to this patient does not smoke -SW on board for discharge planning. Encourage patient to participate in groups to work on coping skills. Will await deferral and court date.
[2023-07-20] MEDS ORDERED: risperiDONE 1 MG TAB PO SCH (21:00)
[2023-07-20] MEDS: MAGNESIUM HYDROXIDE 2,400 MG/30 ML CUP PO PRN (21:55)
[2023-07-21] MEDS: NICOTINE 14MG/24HR PATCH TRANSDERM SCH (08:29)
[2023-07-21 12:40] LABS: Appearance,Urine Clear (Clear); Bilirubin,Urine Negative (Negative); Blood,Urine Negative (Negative); Color,Urine Colorless; Glucose,Urine (UA) Negative (Negative); Ketones,Urine Negative (Negative); Leukocyte Esterase,Urine Negative (Negative); Nitrite,Urine Negative (Negative); PH, Urine 6.5 (5.0-8.0); Protein,Urine Negative (Negative); Specific Gravity,Urine 1.008 (1.001-1.035); Urobilinogen,Urine <2.0 mg/dL (<2.0)
--- NOTE | 2023-07-21 14:42 | P.PN ---
Progress Note - Text Progress Note Date: 07/21/23 Interval history: Patient was seen wandering the hallways after she showered today. She claims that she wants more time to speak with caption writer today. She continues to act bizarrely during the interview, looking around the room, was intrusive with caption writer and asked him to "give me a hug". She continues to have fairly poor insight and judgment. She was illogical at times during the interview and bizarre behaviors. She did appear to be less sedated today and has been taking her medications. She asked more about the court process which was explained to her. States that she is sleeping fairly at nighttime. She is denying any depression or anxiety at this time. Her insight and judgment remain poor. She has not been going to many groups. She is denying any auditory or visual hallucinations, denying any suicidal or homicidal ideations intent or plan. Mental status examination: General Appearance: Patient appears to be thin, disheveled hair, bizarre and responding to internal stimuli, mildly improivng , stated age is alert. Patient appears to have improving hygiene and grooming. Behavior: Patient is seated without any agitated behavior. Bizarre and responding to internal stimuli, improving mildly. intrusive Speech: Patient's speech is fluent and nonpressured. [place], vague Mood/Affect: Patient reports their mood is "ok", affect is congruent Suicidality/Homicidality: Patient denies having any homicidal ideation intent or plan. Denies any suicidal ideations intent or plan Perceptions: Patient denies any visual hallucinations and denies any auditory hallucinations Though content/process: Illogical, loose associations. Bizarre. Memory and concentration: AOX3, grossly intact for the purposes of this session Judgment and insight: poor IMPRESSIONS: Psychosis unspecified Hallucinogen abuse Cannabis use disorder severe History of depression and anxiety PLAN: -Patient is admitted under involuntary status to MHU for stabilization of psychiatric symptoms and safety. Patient has not signed adult voluntary form and medication consent and is placed in patient's chart. -Medications : increase Risperdal 2 mg daily at bedtime for psychosis, Lexapro 20 mg daily at bedtime for mood/anxiety. -Ativan and Haldol PRN for agitation/aggression -NRT - not need to this patient does not smoke -SW on board for discharge planning. Encourage patient to participate in groups to work on coping skills. patient apparently deferred with her claim attorney.
[2023-07-21] MEDS: risperiDONE 2 MG TAB PO SCH (20:03)
[2023-07-21] MEDS: ESCITALOPRAM 20 MG TAB PO SCH (20:03)
[2023-07-21] MEDS: MAGNESIUM HYDROXIDE 2,400 MG/30 ML CUP PO PRN (20:04)
[2023-07-21] MEDS: LORazepam 1 MG TAB PO PRN (21:42)
[2023-07-22] MEDS: NICOTINE 14MG/24HR PATCH TRANSDERM SCH (07:46)
--- NOTE | 2023-07-22 11:14 | P.PN ---
Progress Note - Text Progress Note Date: 07/22/23 Interval history: Patient was seen wandering the hallways today and was agreeable to seek a writ er. Patient was sitting quietly in the phone area with her cup of water and was not on the phone. She continues to act bizarrely however mild improvement. She states that she misses her "bullies" referring to her kittens and also her grandmother. She continues to have fairly poor insight into why she came to the hospital and minimized her drug use. She did appear to be less sedated today and has been taking her medications. She claims that she was able to sleep fairly last night with increase in Risperdal. She is denying any depression or anxiety at this time. Her insight and judgment remain poor. She has not been going to many groups. Continues to be illogical at times and ask bizarre questions or keno writer/runner. She is denying any auditory or visual hallucinations, denying any suicidal or homicidal ideations intent or plan. Mental status examination: General Appearance: Patient appears to be thin, disheveled hair, bizarre and responding to internal stimuli, mildly improivng , stated age is alert. Patient appears to have improving hygiene and grooming. Behavior: Patient is seated without any agitated behavior. Bizarre and responding to internal stimuli less today, improving mildly. less intrusive Speech: Patient's speech is fluent and nonpressured. [place], vague Mood/Affect: Patient reports their mood is "okay", affect is congruent somewhat tearful today Suicidality/Homicidality: Patient denies having any homicidal ideation intent or plan. Denies any suicidal ideations intent or plan Perceptions: Patient denies any visual hallucinations and denies any auditory hallucinations Though content/process: Illogical, loose associations. Bizarre, improving mildly Memory and concentration: AOX3, grossly intact for the purposes of this session Judgment and insight: poor IMPRESSIONS: Psychosis unspecified Hallucinogen abuse Cannabis use disorder severe History of depression and anxiety PLAN: -Patient is admitted under involuntary status to MHU for stabilization of psychiatric symptoms and safety. Patient has not signed adult voluntary form and medication consent and is placed in patient's chart. -Medications : Risperdal 2 mg daily at bedtime for psychosis, Lexapro 20 mg daily at bedtime for mood/anxiety. -Ativan and Haldol PRN for agitation/aggression -NRT - not need to this patient does not smoke -SW on board for discharge planning. Encourage patient to participate in groups to work on coping skills. patient apparently deferred with her carpet yarn winder operator. will continue to observe and see if patient improves more psychiatrically back to her baseline. hopeful for discharge early next week
[2023-07-22] MEDS: LORazepam 1 MG TAB PO PRN (20:29)
[2023-07-22] MEDS: risperiDONE 2 MG TAB PO SCH (20:29)
[2023-07-22] MEDS: ESCITALOPRAM 20 MG TAB PO SCH (20:29)
[2023-07-23] MEDS: NICOTINE 14MG/24HR PATCH TRANSDERM SCH (08:42)
--- NOTE | 2023-07-23 12:23 | P.PN ---
Progress Note - Text Progress Note Date: 07/23/23 Interval history: Patient was seen wandering the hallways today and was agreeable to seek a writ er. Patient continues to be mildly bizarre with sports writer. Not responding to internal stimuli today. She claims that she is feeling "tired" during the day and we spoke about her medications and the side effects. She claims that she took 10 Ativan last night due to difficulties not being able to sleep however patient was asked if she wanted to try another medication and patient states that "I'm getting enough sleep". She is denying any depression or anxiety at this time. Her insight and judgment remain poor however improving midlly. She has not been going to many groups. continue to ask bizarre questions or sports writer. She is denying any auditory or visual hallucinations, denying any suicidal or homicidal ideations intent or plan. Mental status examination: General Appearance: Patient appears to be thin, disheveled hair, bizarre and not responding to internal stimuli, stated age is alert. Patient appears to have improving hygiene and grooming. Behavior: Patient is seated without any agitated behavior. less Bizarre, less intrusive Speech: Patient's speech is fluent and nonpressured. [facility], vague Mood/Affect: Patient reports their mood is "tired", affect is congruent Suicidality/Homicidality: Patient denies having any homicidal ideation intent or plan. Denies any suicidal ideations intent or plan Perceptions: Patient denies any visual hallucinations and denies any auditory hallucinations Though content/process: more logical. Bizarre, improving mildly Memory and concentration: AOX3, grossly intact for the purposes of this session Judgment and insight: poor, improving mildly IMPRESSIONS: Psychosis unspecified Hallucinogen abuse Cannabis use disorder severe History of depression and anxiety PLAN: -Patient is admitted under involuntary status to [facility] for stabilization of psychiatric symptoms and safety. Patient has not signed adult voluntary form and medication consent and is placed in patient's chart. -Medications : Risperdal 2 mg daily at bedtime for psychosis, Lexapro 20 mg daily at bedtime for mood/anxiety. added melatonin qhs for sleep -Ativan and Haldol PRN for agitation/aggression -NRT - not need to this patient does not smoke -SW on board for discharge planning. Encourage patient to participate in groups to work on coping skills. patient apparently deferred with her immigration attorney. will continue to observe and see if patient improves more psychiatrically back to her baseline. hopeful for discharge wednesday if she improves over the weekend
[2023-07-23] MEDS: risperiDONE 2 MG TAB PO SCH (20:34)
[2023-07-23] MEDS: ESCITALOPRAM 20 MG TAB PO SCH (20:34)
[2023-07-23] MEDS: MELATONIN 5 MG TABLET PO SCH (20:35)
[2023-07-24] MEDS: LORazepam 1 MG TAB PO PRN (02:10)
[2023-07-24] MEDS: NICOTINE 14MG/24HR PATCH TRANSDERM SCH (08:58)
--- NOTE | 2023-07-24 10:06 | P.PN ---
Subjective Progress Note Date: 07/24/23 Principal diagnosis: IMPRESSIONS: Psychosis unspecified she almost comes across like she is mildly manic he could be due to hallucinogen abuse and Cannabis use disorder severe History of depression and anxiety Interval history: Patient was seen wandering the hallways today and was agreeable to talk to the travel writer. Patient is mildly bizarre with travel writer. She wandered around the room looking out the window and making comments about whether it was warm outside or not. She rambled off topic and gave excessive irrelevant detail to simple questions. She could not explain why she is in a psychiatric hospital. She does not seem to be responding to internal stimuli . She claims that she is feeling "tired" during the day and has some dry mouth and constipation. Seems that she is sensitive to anticholinergic side effects. However her dose of risperidone is modest.. She claims that she took Ativan last night due to having someone come into her room and wake her up in the middle of the night. She is going to groups. She notices everything in the room has to make a c omment about it. For example she knows of my first name sounded similar to Verity so she has some dementia and truth and she had to make a comment about. She is denying any auditory or visual hallucinations, denying any suicidal or homicidal ideations intent or plan. Mental status examination: She looks a little tired reasonable self-care General Appearance: Patient appears to be her stated age, is alert. Behavior: Patient is seated without any agitated behavior. Speech: Patient's speech is fluent and nonpressured. [place], vague Mood/Affect: Patient reports their mood is "tired", affect is congruent Suicidality/Homicidality: Patient denies having any homicidal ideation intent or plan. Denies any suicidal ideations intent or plan Perceptions: Patient denies any visual hallucinations and denies any auditory hallucinations Though content/process: Bizarre, improving mildly Memory and concentration: AOX3, grossly intact for the purposes of this session Judgment and insight: poor, improving mildly IMPRESSIONS: Psychosis unspecified she almost comes across like she is mildly manic he could be due to hallucinogen abuse and Cannabis use disorder severe History of depression and anxiety PLAN: No change in medication at this time she is having some mild anticholinergic reactions to risperidone her she needs something for racing and rambling thoughts -Patient is admitted under involuntary status to [facility] for stabilization of psychiatric symptoms and safety. Patient has not signed adult voluntary form and medication consent and is placed in patient's chart. -Medications : Risperdal 2 mg daily at bedtime for psychosis, Lexapro 20 mg daily at bedtime for mood/anxiety. added melatonin qhs for sleep -Ativan and Haldol PRN for agitation/aggression -NRT - not need to this patient does not smoke -SW on board for discharge planning. Encourage patient to participate in groups to work on coping skills. patient apparently deferred with her manufacturing project manager. will continue to observe and see if patient improves more psychiatrically back to her baseline. hopeful for discharge wednesday if she improves over the weekend Objective - Vital Signs Vital signs: Vital Signs Temp 97 F L 07/23/23 06:18 Pulse 91 07/23/23 06:18 Resp 16 07/23/23 06:18 BP 117/58 07/23/23 06:18 Pulse Ox 98 07/23/23 06:18 FiO2 Intake & Output 07/23/23 07/24/23 07/24/23 18:59 06:59 18:59 Weight 63.049 kg - Labs CBC & Chem 7: 07/17/23 22:07 07/17/23 22:07
[2023-07-24] MEDS: MAGNESIUM HYDROXIDE 2,400 MG/30 ML CUP PO PRN (14:07)
[2023-07-24] MEDS: MELATONIN 5 MG TABLET PO SCH (21:06)
[2023-07-24] MEDS: risperiDONE 2 MG TAB PO SCH (21:06)
[2023-07-24] MEDS: ESCITALOPRAM 20 MG TAB PO SCH (21:06)
[2023-07-25] MEDS: LORazepam 1 MG TAB PO PRN (04:18)
[2023-07-25] MEDS: NICOTINE 14MG/24HR PATCH TRANSDERM SCH (08:19)
--- NOTE | 2023-07-25 11:15 | P.PN ---
Subjective Progress Note Date: 07/25/23 Principal diagnosis: IMPRESSIONS: Psychosis unspecified she almost comes across like she is mildly manic he could be due to hallucinogen abuse and Cannabis use disorder severe History of depression and anxiety Interval history: Patient was seen wandering the hallways today and was agreeable to talk to the group underwriter. Patient is mildly bizarre with group underwriter. She wandered around the room looking out the window and making comments about whether it was warm outside or not. She rambled off topic and gave excessive irrelevant detail to simple questions. She could not explain why she is in a psychiatric hospital. She does not seem to be responding to internal stimuli . She claims that she is feeling "tired" during the day and has some dry mouth and constipation. Seems that she is sensitive to anticholinergic side effects. However her dose of risperidone is modest.. She claims that she took Ativan last night due to having someone come into her room and wake her up in the middle of the night. She is going to groups. She notices everything in the room has to make a c omment about it. For example she knows of my first name sounded similar to Verity so she has some dementia and truth and she had to make a comment about. She is denying any auditory or visual hallucinations, denying any suicidal or homicidal ideations intent or plan. The patient had a lot of trouble getting back to sleep when she was awakened in the middle of the night. She is on melatonin and she says it does help but she didn't like taking Ativan and get back to sleep because then she is too groggy the next day. She has taken trazodone in the past and found it helpful so we are going to give that a try. Mental status examination: She looks a little tired. She has reasonable self-care she has good eye contact General Appearance: Patient appears to be her stated age, is alert. Behavior: Patient is seated without any agitated behavior. Speech: Patient's speech is fluent and nonpressured. [place], vague and doesn't tend to change topic Mood/Affect: Patient reports their mood is somewhat anxious about how she will do after she leaves which is appropriate, affect is congruent Suicidality/Homicidality: Patient denies having any homicidal ideation intent or plan. Denies any suicidal ideations intent or plan Perceptions: Patient denies any visual hallucinations and denies any auditory hallucinations Though content/process: She is improving Memory and concentration: AOX3, grossly intact for the purposes of this session Judgment and insight: poor, improving Assessment I think she is responding well to her medication I think is good if she can sleep well so when at some trazodone tonight IMPRESSIONS: Psychosis unspecified she almost comes across like she is mildly manic he could be due to hallucinogen abuse and Cannabis use disorder severe History of depression and anxiety PLAN: Add some trazodone to help with sleep. She needs something for racing and rambling thoughts -Patient is admitted under involuntary status to [facility] for stabilization of psychiatric symptoms and safety. Patient has not signed adult voluntary form and medication consent and is placed in patient's chart. -Medications : Risperdal 2 mg daily at bedtime for psychosis, Lexapro 20 mg daily at bedtime for mood/anxiety. added melatonin qhs for sleep -Ativan and Haldol PRN for agitation/aggression -NRT - not need to this patient does not smoke -SW on board for discharge planning. Encourage patient to participate in groups to work on coping skills. patient apparently deferred with her bill adjuster. will continue to observe and see if patient improves more psychiatrically back to her baseline. hopeful for discharge wednesday if she improves over the weekend Objective - Vital Signs Vital signs: Vital Signs Temp 97.4 F L 07/25/23 03:49 Pulse 88 07/25/23 03:49 Resp 14 07/25/23 03:49 BP 122/58 07/25/23 03:49 Pulse Ox 98 07/23/23 06:18 FiO2 - Labs CBC & Chem 7: 07/17/23 22:07 07/17/23 22:07
[2023-07-25] MEDS: risperiDONE 2 MG TAB PO SCH (19:52)
[2023-07-25] MEDS: ESCITALOPRAM 20 MG TAB PO SCH (19:52)
[2023-07-25] MEDS: MELATONIN 5 MG TABLET PO SCH (20:37)
[2023-07-25] MEDS ORDERED: traZODone HCL 100 MG TAB PO SCH (21:00)
[2023-07-26 06:41] VITALS: BP 104/53; PULSE 74; RESP 18; TEMP 98.2
[2023-07-26] MEDS: NICOTINE 14MG/24HR PATCH TRANSDERM SCH (08:11)
--- NOTE | 2023-07-26 10:18 | P.DS ---
Providers Date of admission: 07/18/23 16:15 Expected date of discharge: 07/26/23 Attending physician: Roe Pozo MD Consults: 07/18/23 16:20 Consult Physician Routine Consulting Provider: Tejas Dominguez Consult Reason/Comments: H&P Do you want consulting provider notified?: Yes Primary care physician: Tejas Dominguez - Discharge Diagnosis(es) (1) Unspecified psychosis Current Visit: Yes Status: Acute Priority: High (2) Hallucinogen abuse Current Visit: Yes Status: Acute Priority: High (3) Cannabis use disorder, severe, dependence Current Visit: Yes Status: Acute Priority: High (4) History of depression Current Visit: Yes Status: Acute Priority: Medium (5) History of anxiety Current Visit: Yes Status: Acute Priority: Low Hospital Course: Admission HPI: Admission note was completed by life insurance underwriter " Patient is a 32-year-old female currently lives with her grandmother in a house, she is single, 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 Patient presented to the hospital urgently for depression and altered mental status. Patient apparently was wandering in the streets, she was picked up by police, she was having poor concentration. Patient was petitioned by sanitation officer and clinically certed. Patient was difficult to redirect during conversation, was gazing around the room several times, tried to read words off of the wall. She was getting at her skin and fairly distracted. She claimed that she was brought in for a "safety check" she had very poor insight poor judgment and poor reality testing. She claims that she was feeling depressed and having suicidal thoughts for coming in the hospital. She was wandering around downtown and states that "it's okay to wander". She claims that she was talking to someone however did not ever was. She believes that she was friends with the grant officer. She claims that she was "just dreaming" and was fairly illogical and bizarre. She poor concentration during the interview. She was denying any paranoia, was fairly superficial, was argumentative about medications and did not want to take them. Claims that her sleep and appetite are fair. Patient denies any suicidal or homicidal ideations intent or plan. At this time patient denies any auditory or visual hallucinations. Patient denies any flight of ideas racing thoughts and increased in goal directed behavior. Patient admits to using marijuana heavily approximately 3-4 joints a day. States that she also uses mushrooms however was fairly vague about how often she uses it. Denies any other recreational drug use" Hospital course: Upon admission to the unit patient was admitted involuntarily on a petition and certificate and a second certificate was completed and faxed with the courts. Patient ended up signing a deferral with the research attorney and agreeing to treatment. Patient was initially fairly bizarre, psychotic responding to internal stimuli with time in treatment she got along well with other patients on the unit and followed unit protocol. Patient was compliant with the medications and denied any side effects throughout hospital course. Patient was started on Risperdal by mouth and increased to a dose of 2 mg daily at bedtime for psychosis/mood stabilization, melatonin daily at bedtime for sleep, trazodone 100 mg daily at bedtime or insomnia/mood, she was restarted back on Lexapro 20 mg daily for mood/anxiety. Patient spoke of her stressors and engaged in therapy both group and individual. Patient was also seen by medical team for history and physical exam. Throughout the course of the hospitalization patient gradually improved with regards to mood, anxiety, psychotic symptoms, sleep and returned back to their baseline level of functioning. On the day of discharge patient denied any suicidal or homicidal ideations intent or plan denied any auditory or visual hallucinations. Patient endorsed wanting to live for her health and her future. The patient denied any access to guns or weapons. Patient denied any paranoia and did not endorse any delusions. Patient does have a significant history of substance abuse and was counseled on abstaining from all substances including alcohol and marijuana. Patient was offered however declined inpatient substance- abuse rehab. Patient was also counseled on the medications and need for regular compliance and was encouraged to follow-up with their outpatient appointment for mental health and also for primary care. Prior to discharge a family meeting will be arranged by social media job titles to answer any questions and ensure safety upon discharge. Mental status exam: General Appearance: Patient appears to be stated age is alert, pleasant, and cooperative. Patient is in no acute distress and has improved hygiene and grooming Behavior: Patient is calmly seated without any agitated behavior. Speech: Patient's speech is fluent and nonpressured. Mood/Affect: Patient reports their mood is "good", affect is congruent and euthymic. Suicidality/Homicidality: Patient denies having any suicidal or homicidal ideation intent or plan. Perceptions: Patient denies any auditory or visual hallucinations. Though content/process: There is no evidence of any delusional thought content and thought process is linear and goal-directed. Memory and concentration: AOX3, grossly intact for the purposes of this session. Can spell "WORLD" backwards correctly. Judgment and insight: chronically poor, however has improved with guarded prognosis Impression: Psychosis unspecified Hallucinogen abuse Cannabis use disorder severe dependence History of depression History of anxiety Plan: -Continue with discharge today as patient has improved and stabilized psychiatrically and is not currently an imminent threat to herself and/or others. Patient will remain at chronically elevated risk for harm to self and/or others due to her polysubstance abuse. -Continue medications: Risperdal 2 mg daily at bedtime for psychosis/mood stabilization, Lexapro 20 mg daily at bedtime for mood/anxiety, melatonin 5 mg daily at bedtime for sleep, trazodone 100 mg daily at bedtime when necessary for insomnia. -Patient was counseled on the need for medication compliance and appropriate follow-up at mental health and also primary care for medical issues. Patient verbalized understanding and agreed. -Social work to arrange for and conduct family meeting to ensure safety upon discharge and answer any questions/concerns. Social work also to arrange for patients follow up appointments for psychiatric care along with follow up with primary care provider. -Patient counseled on abstaining from recreational drugs and marijuana and alcohol. Was informed/educated on the adverse effects on their physical and mental health. Patient verbally agreed and understood. Patient was offered substance abuse treatment however declined at this time. -Patient was instructed to return to the hospital or seek immediate medical care if their psychiatric or medical symptoms do worsen or reoccur. Allergies Allergy/AdvReac Type Severity Reaction Status Date / Time No Known Allergies Allergy Verified 07/02/20 02:13 Laboratory Results WBC 6.6 k/uL (3.8-10.6) 07/17/23 22:07 RBC 4.31 m/uL (3.80-5.40) 07/17/23 22:07 Hgb 13.1 gm/dL (11.4-16.0) 07/17/23 22:07 Hct 40.0 % (34.0-46.0) 07/17/23 22:07 MCV 92.9 fL (80.0-100.0) 07/17/23 22:07 MCH 30.5 pg (25.0-35.0) 07/17/23 22:07 MCHC 32.8 g/dL (31.0-37.0) 07/17/23 22:07 RDW 12.5 % (11.5-15.5) 07/17/23 22:07 Plt Count 316 k/uL (150-450) 07/17/23 22:07 MPV 7.9 07/17/23 22:07 Neutrophils % 58 % 07/17/23 22:07 Lymphocytes % 31 % 07/17/23 22:07 Monocytes % 6 % 07/17/23 22:07 Eosinophils % 2 % 07/17/23 22:07 Basophils % 1 % 07/17/23 22:07 Neutrophils # 3.8 k/uL (1.3-7.7) 07/17/23 22:07 Lymphocytes # 2.1 k/uL (1.0-4.8) 07/17/23 22:07 Monocytes # 0.4 k/uL (0-1.0) 07/17/23 22:07 Eosinophils # 0.2 k/uL (0-0.7) 07/17/23 22:07 Basophils # 0.0 k/uL (0-0.2) 07/17/23 22:07 Sodium 138 mmol/L (137-145) 07/17/23 22:07 Potassium 4.3 mmol/L (3.5-5.1) 07/17/23 22:07 Chloride 102 mmol/L (98-107) 07/17/23 22:07 Carbon Dioxide 26 mmol/L (22-30) 07/17/23 22:07 Anion Gap 10 mmol/L 07/17/23 22:07 BUN 14 mg/dL (7-17) 07/17/23 22:07 Creatinine 0.76 mg/dL (0.52-1.04) 07/17/23 22:07 Est GFR (CKD-EPI)AfAm >90 (>60 ml/min/1.73 sqM) 07/17/23 22:07 Est GFR (CKD-EPI)NonAf >90 (>60 ml/min/1.73 sqM) 07/17/23 22:07 Glucose 88 mg/dL (74-99) 07/17/23 22:[address] Glu mg/dL 111 mg/dL 07/17/23 22:07 Hemoglobin A1c 5.5 % (<=6.0) 07/17/23 22:07 Calcium 9.8 mg/dL (8.4-10.2) 07/17/23 22:07 TSH 1.320 mIU/L (0.465-4.680) 07/17/23 22:07 Urine Color Colorless 07/21/23 12:00 Urine Appearance Clear (Clear) 07/21/23 12:00 Urine pH 6.5 (5.0-8.0) 07/21/23 12:00 Ur Specific [place] 1.008 (1.001-1.035) 07/21/23 12:00 Urine Protein Negative (Negative) 07/21/23 12:00 Urine Glucose (UA) Negative (Negative) 07/21/23 12:00 Urine Ketones Negative (Negative) 07/21/23 12:00 Urine Blood Negative (Negative) 07/21/23 12:00 Urine Nitrite Negative (Negative) 07/21/23 12:00 Urine Bilirubin Negative (Negative) 07/21/23 12:00 Urine Urobilinogen <2.0 mg/dL (<2.0) 07/21/23 12:00 Ur Leukocyte Esterase Negative (Negative) 07/21/23 12:00 Urine RBC 1 /hpf (0-5) 07/17/23 22:07 Urine WBC 5 /hpf (0-5) 07/17/23 22:07 Ur Squamous Epith Cells 4 /hpf (0-4) 07/17/23 22:07 Urine Mucus Occasional /hpf (None) H 07/17/23 22:07 Urine HCG, Qual Not Detected (Not Detectd) 07/17/23 22:07 Urine Opiates Screen Not Detected (NotDetected) 07/17/23 22:07 Ur Oxycodone Screen Not Detected (NotDetected) 07/17/23 22:07 Urine Methadone Screen Not Detected (NotDetected) 07/17/23 22:07 Ur Propoxyphene Screen Not Detected (NotDetected) 07/17/23 22:07 Ur Barbiturates Screen Not Detected (NotDetected) 07/17/23 22:07 U Tricyclic Antidepress Not Detected (NotDetected) 07/17/23 22:07 Ur Phencyclidine Scrn Not Detected (NotDetected) 07/17/23 22:07 Ur Amphetamines Screen Detected (NotDetected) H 07/17/23 22:07 U Methamphetamines Scrn Not Detected (NotDetected) 07/17/23 22:07 U Benzodiazepines Scrn Not Detected (NotDetected) 07/17/23 22:07 Urine Cocaine Screen Not Detected (NotDetected) 07/17/23 22:07 U Marijuana (THC) Screen Detected (NotDetected) H 07/17/23 22:07 Coronavirus (PCR) Not Detected (Not Detectd) 07/18/23 15:22 Vital Signs Temp 98.2 F 07/26/23 06:37 Pulse 74 07/26/23 06:37 Resp 18 07/26/23 06:37 BP 104/53 07/26/23 06:37 Pulse Ox 98 07/23/23 06:18 FiO2 Patient Condition at Discharge: Stable Plan - Discharge Summary Discharge Rx Participant: Yes New Discharge Prescriptions: New traZODone HCL [Desyrel] 50 - 100 mg PO HS PRN 30 Days #30 tab PRN Reason: Insomnia Nicotine 14Mg/24Hr Patch [Habitrol] 1 patch TRANSDERM DAILY 14 Days #14 patch Escitalopram [Lexapro] 20 mg PO HS 30 Days #30 tab Melatonin 5 mg PO HS 30 Days #30 tab risperiDONE [RisperDAL] 2 mg PO HS 30 Days #30 tab Discontinued Escitalopram [Lexapro] 20 mg PO DAILY Dextroamphetamine/Amphetamine [Adderall] 20 mg PO DAILY Dextroamphetamine/Amphetamine [Adderall] 10 mg PO DAILY@1200 Omeprazole [PriLOSEC] 20 mg PO HS Discharge Medication List Escitalopram [Lexapro] 20 mg PO HS 30 Days #30 tab 07/26/23 [Rx] Melatonin 5 mg PO HS 30 Days #30 tab 07/26/23 [Rx] Nicotine 14Mg/24Hr Patch [Habitrol] 1 patch TRANSDERM DAILY 14 Days #14 patch 07/26/23 [Rx] risperiDONE [RisperDAL] 2 mg PO HS 30 Days #30 tab 07/26/23 [Rx] traZODone HCL [Desyrel] 50 - 100 mg PO HS PRN 30 Days #30 tab 07/26/23 [Rx] Follow up Appointment(s)/Referral(s): [facility]ue[facility] [Outside] - 1 Week Tejas Dominguez DO [Primary Care Provider] - 1-2 days Activity/Diet/Wound Care/Special Instructions: Avoid the use of street drugs and alcohol. Take all medications as prescribed. When you are in need of refills on your medications, please contact your medical provider and/or outpatient psychiatrist/provider to have this done. Please go to your scheduled outpatient appointment for aftercare treatment. If symptoms return or become worse, call the crisis line at and/or go to the nearest emergency room for evaluation. National Suicide Hotline 560. Discharge Disposition: HOME SELF-CARE
== END 2023-07-26 13:27 | disposition home or self-care (01) | DRG 751 ==
LOC: EC 21:14 → 3MHU 07-18 16:15
PROVIDERS: ADMIT Psychiatry & Neurology Psychiatry; ATTEND Psychiatry & Neurology Psychiatry
DX: F29 Unspecified psychosis not due to a substance or known physiological condition (principal); E03.9 Hypothyroidism, unspecified; F16.10 Hallucinogen abuse, uncomplicated; F12.20 Cannabis dependence, uncomplicated; Z20.822 Contact with and (suspected) exposure to COVID-19; Z79.899 Other long term (current) drug therapy; R45.851 Suicidal ideations; E86.0 Dehydration; F03.918 Unspecified dementia, unspecified severity, with other behavioral disturbance; F03.94 Unspecified dementia, unspecified severity, with anxiety; F03.93 Unspecified dementia, unspecified severity, with mood disturbance; F03.911 Unspecified dementia, unspecified severity, with agitation; F17.290 Nicotine dependence, other tobacco product, uncomplicated; Z71.6 Tobacco abuse counseling; G47.00 Insomnia, unspecified; Z71.51 Drug abuse counseling and surveillance of drug abuser; Z71.41 Alcohol abuse counseling and surveillance of alcoholic; Z81.8 Family history of other mental and behavioral disorders
CPT/HCPCS: 36415; 80048; 80306; 81001; 81003; 81025; 82075; 83036; 84443; 85025; 87635; 96360; 96361; 99285

== ENCOUNTER 2024-05-01 16:40 | Inpatient (IN) | payer BC, OTHER ==
--- NOTE | 2024-05-01 17:29 | ED ---
Psych HPI - General Chief Complaint: Psychiatric Symptoms Stated Complaint: Mental health eval Time Seen by Provider: 05/01/24 16:45 Source: patient Mode of arrival: ambulatory - History of Present Illness Initial Comments: 33-year-old female presents to the emergency department psychiatric evaluation. She is brought in by her uncle. Uncle reports that the patient lives with her grandmother. Grandmother has been concerned for her own safety as the patient has been acting out. She has been threatening herself and others. There has been no reported attempts. Patient has history of mental health issues. She is supposed to take psychiatric medications however the patient refuses. Previously the patient was known to be abusing mushrooms and THC. 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 Denies drug use. HPI is limited because of patient's aggressive behavior - Related Data Home Medications Medication Instructions Recorded Confirmed No Known Home Medications 05/01/24 05/01/24 Allergies Allergy/AdvReac Type Severity Reaction Status Date / Time No Known Allergies Allergy Verified 05/01/24 22:26 Review of Systems ROS Statement: Those systems with pertinent positive or pertinent negative responses have been documented in the HPI. ROS Other: All systems not noted in ROS Statement are negative. Past Medical History Past Medical History: No Reported History History of Any Multi-Drug Resistant Organisms: None Reported Past Surgical History: No Surgical Hx Reported Past Psychological History: No Psychological Hx Reported Smoking Status: Former smoker Past Alcohol Use History: Occasional Past Drug Use History: None Reported, Marijuana General Exam Limitations: altered mental status General appearance: alert Head exam: Present: atraumatic, normocephalic, normal inspection Eye exam: Present: normal appearance, PERRL, EOMI. Absent: scleral icterus, conjunctival injection, periorbital swelling Neurological exam: Present: alert, oriented X3, CN II-XII intact Psychiatric exam: Present: agitated Skin exam: Present: warm, dry, intact, normal color. Absent: rash Course Vital Signs 05/01/24 05/01/24 16:43 21:40 Temperature 97.9 F Pulse Rate 74 69 Respiratory 16 18 Rate Blood Pressure 110/76 123/62 O2 Sat by Pulse 98 100 Oximetry Procedures - Restraint - Face to Face Restraint Occurrence 1 Patient's Immediate Situation: Endangers self safety, Endangers others' safety Patient's Reaction to the Intervention: Hostile, Bizarre, Aggressive Patient's Medical & Behavioral Condition: Agitated, Flight of ideas Need to Continue or Terminate Restraint or Seclusion: Continue Face to Face Eval of Restraint Date: 05/01/24 Face to Face Eval of Restraint Time: 17:20 Medical Decision Making - Medical Decision Making Was pt. sent in by a medical professional or institution (, PA, ROUTE SALESMAN AND DRIVER, urgent care, hospital, or care home...) When possible be specific @ -No Did you speak to anyone other than the patient for history (EMS, parent, family, police, friend...)? What history was obtained from this source @ -Patient's uncle for history Did you review nursing and triage notes (agree or disagree)? Why? @ -I reviewed and agree with nursing and triage notes Were old charts reviewed (outside hosp., previous admission, EMS record, old EKG, old radiological studies, urgent care reports/EKG's, care home records)? Report findings @ -No old charts were reviewed Differential Diagnosis (chest pain, altered mental status, abdominal pain women, abdominal pain men, vaginal bleeding, weakness, fever, dyspnea, syncope, headache, dizziness, GI bleed, back pain, seizure, CVA, palpatations, mental health, musculoskeletal)? @ -Differential Mental Health Depression, anxiety, bipolar, psychosis, schizophrenia, borderline personality, situational depression, adjustment disorder, behavioral disorder, brain tumor, malingering, substance abuse, encephalopathy, medication reaction, dementia, hypothyroidism, degenerative neurologic disorder, lupus.... This is not meant to be all-inclusive list EKG interpreted by me (3pts min.). @ -Not done X-rays interpreted by me (1pt min.). @ -None done CT interpreted by me (1pt min.). @ -None done U/S interpreted by me (1pt. min.). @ -None done What testing was considered but not performed or refused? (CT, X-rays, U/S, labs)? Why? @ -None What meds were considered but not given or refused? Why? @ -None Did you discuss the management of the patient with other professionals (professionals i.e. , KODI, ROUTE SALESMAN AND DRIVER, lab, RT, psych nurse, social media executive, pediatric dermatologist, teacher, grants officer, case management assistant)? Give summary @ -Spoke with the EPS nurse Was smoking cessation discussed for >3mins.? @ -No Was critical care preformed (if so, how long)? @ -Yes, 35 minutes as patient does require restraints due to her aggressive behavior and physical altercations with staff Were there social determinants of health that impacted care today? How? (Homelessness, low income, unemployed, alcoholism, drug addiction, transportation, low edu. Level, literacy, decrease access to med. care, [facility], rehab)? @ -No Was there de-escalation of care discussed even if they declined (Discuss DNR or withdrawal of care, Hospice)? DNR status @ -No What co-morbidities impacted this encounter? (DM, HTN, Smoking, COPD, CAD, Cancer, CVA, ARF, Chemo, Hep., AIDS, mental health diagnosis, sleep apnea, morbi d obesity)? @ -None Was patient admitted / discharged? Hospital course, mention meds given and rout e, prescriptions, significant lab abnormalities, going to OR and other pertinent info. @ -Upon arrival patient seen and evaluated in room 13. Thorough history and physical exam was performed. Patient was evaluated by EPS. She does require placement. Patient will be admitted to psychiatric floor Undiagnosed new problem with uncertain prognosis? @ -No Drug Therapy requiring intensive monitoring for toxicity (Heparin, Nitro, Insulin, Cardizem)? @ -No Were any procedures done? @ -No Diagnosis/symptom? @ -Acute aggressive behavior, oriana Acute, or Chronic, or Acute on Chronic? @ -Acute Uncomplicated (without systemic symptoms) or Complicated (systemic symptoms)? @ -Complicated Side effects of treatment? @ -No Exacerbation, Progression, or Severe Exacerbation? @ -No Poses a threat to life or bodily function? How? (Chest pain, USA, [place], pneumonia, PE, COPD, DKA, ARF, appy, cholecystitis, CVA, Diverticulitis, Homicidal, Suicidal, threat to staff... and all critical care pts) @ -No - Lab Data Result diagrams: 05/03/24 07:54 05/03/24 07:54 Lab Results 05/01/24 05/01/24 05/01/24 Range/Units 18:40 18:40 20:15 Urine Color Light Yellow Urine Appearance Clear (Clear) Urine pH 6.5 (5.0-8.0) Ur Specific [place] 1.030 (1.001-1.035) Urine Protein Trace H (Negative) Urine Glucose (UA) Negative (Negative) Urine Ketones Trace H (Negative) Urine Blood Negative (Negative) Urine Nitrite Negative (Negative) Urine Bilirubin Negative (Negative) Urine Urobilinogen <2.0 (<2.0) mg/dL Ur Leukocyte Esterase Negative (Negative) Urine HCG, Qual Not Detected (Not Detectd) Urine Opiates Screen Not Detected (NotDetected) Ur Oxycodone Screen Not Detected (NotDetected) Urine Methadone Screen Not Detected (NotDetected) Ur Barbiturates Screen Not Detected (NotDetected) U Tricyclic Antidepress Not Detected (NotDetected) Ur Phencyclidine Scrn Not Detected (NotDetected) Ur Amphetamines Screen Not Detected (NotDetected) U Methamphetamines Scrn Not Detected (NotDetected) U Benzodiazepines Scrn Not Detected (NotDetected) Urine Cocaine Screen Not Detected (NotDetected) U Marijuana (THC) Screen Detected H (NotDetected) SARS-CoV-2 (PCR) Not Detected (Not Detectd) Disposition Clinical Impression: Oriana, Hallucinogen abuse Disposition: TRANSFER TO PSYCH HOSP/UNIT Condition: Stable Is patient prescribed a controlled substance at d/c from ED?: No
[2024-05-01 21:04] LABS: Appearance,Urine Clear (Clear); Bilirubin,Urine Negative (Negative); Blood,Urine Negative (Negative); Color,Urine Light Yellow; Glucose,Urine (UA) Negative (Negative); Ketones,Urine Trace (Negative); Leukocyte Esterase,Urine Negative (Negative); Nitrite,Urine Negative (Negative); PH, Urine 6.5 (5.0-8.0); Protein,Urine Trace (Negative); Urobilinogen,Urine <2.0 mg/dL (<2.0)
[2024-05-01 21:16] LABS: Amphetamine Screen,Urine Not Detected (NotDetected); Barbiturate Screen,Urine Not Detected (NotDetected); Benzodiazepines Screen,Urine Not Detected (NotDetected); Cocaine Screen,Urine Not Detected (NotDetected); Methadone Screen, Urine Not Detected (NotDetected); Opiate Screen,Urine Not Detected (NotDetected); Oxycodone Screen, Urine Not Detected (NotDetected); Phencyclidine Screen,Urine Not Detected (NotDetected); Tricyclic Antidepressant,Urine Not Detected (NotDetected); Urn Cannabinoid Scrn Detected (NotDetected)
[2024-05-01] MEDS ORDERED: MAG HYDROX/AL HYDROX/SIMETH 355 ML BOTTLE PO PRN (21:44)
[2024-05-01] MEDS ORDERED: LORazepam 2 MG/ML INJ IM PRN (21:44)
[2024-05-01] MEDS: ACETAMINOPHEN TAB 325 MG TAB PO PRN (22:33)
[2024-05-01] MEDS: QUEtiapine 100 MG TAB PO PRN (23:19)
[2024-05-02] MEDS: NICOTINE 14MG/24HR PATCH TRANSDERM SCH (08:04)
[2024-05-02] MEDS: LORazepam 1 MG TAB PO PRN (18:53)
--- NOTE | 2024-05-03 08:06 | P.HP ---
Psychiatric H&P - . H&P Date: 05/02/24 History & Physical: Allergies Allergy/AdvReac Type Severity Reaction Status Date / Time No Known Allergies Allergy Verified 05/01/24 22:26 Vital Signs Temp 97.7 F 05/02/24 06:56 Pulse 92 05/02/24 06:56 Resp 16 05/02/24 06:56 BP 99/72 05/02/24 06:56 Pulse Ox 100 05/02/24 06:56 FiO2 Intake & Output 05/02/24 05/03/24 05/03/24 18:59 06:59 18:59 Weight 65.572 kg Laboratory Last Values Urine Color Light Yellow 05/01/24 18:40 Urine Appearance Clear (Clear) 05/01/24 18:40 Urine pH 6.5 (5.0-8.0) 05/01/24 18:40 Ur Specific [place] 1.030 (1.001-1.035) 05/01/24 18:40 Urine Protein Trace (Negative) H 05/01/24 18:40 Urine Glucose (UA) Negative (Negative) 05/01/24 18:40 Urine Ketones Trace (Negative) H 05/01/24 18:40 Urine Blood Negative (Negative) 05/01/24 18:40 Urine Nitrite Negative (Negative) 05/01/24 18:40 Urine Bilirubin Negative (Negative) 05/01/24 18:40 Urine Urobilinogen <2.0 mg/dL (<2.0) 05/01/24 18:40 Ur Leukocyte Esterase Negative (Negative) 05/01/24 18:40 Urine HCG, Qual Not Detected (Not Detectd) 05/01/24 18:40 Urine Opiates Screen Not Detected (NotDetected) 05/01/24 18:40 Ur Oxycodone Screen Not Detected (NotDetected) 05/01/24 18:40 Urine Methadone Screen Not Detected (NotDetected) 05/01/24 18:40 Ur Barbiturates Screen Not Detected (NotDetected) 05/01/24 18:40 U Tricyclic Antidepress Not Detected (NotDetected) 05/01/24 18:40 Ur Phencyclidine Scrn Not Detected (NotDetected) 05/01/24 18:40 Ur Amphetamines Screen Not Detected (NotDetected) 05/01/24 18:40 U Methamphetamines Scrn Not Detected (NotDetected) 05/01/24 18:40 U Benzodiazepines Scrn Not Detected (NotDetected) 05/01/24 18:40 Urine Cocaine Screen Not Detected (NotDetected) 05/01/24 18:40 U Marijuana (THC) Screen Detected (NotDetected) H 05/01/24 18:40 SARS-CoV-2 (PCR) Not Detected (Not Detectd) 05/01/24 20:15 05/02/24 09:45 IDENTIFYING DATA: Patient is a single, unemployed, 32-year-old male who is presenting with psychosis and substance use History of Present Illness: Patient was brought in by police petitioned by his mother for treatment for mental health. As per mother and the social workers note, the patient has deep morbid thoughts about murder and rape. He told her that he would like her raped and murdered. He tells her that he is going to kill her. He believes he is the brother of Donovan. He believes is not Jose but Chris. He always thinks he is being raped. During this evaluation, the patient did not volunteer any information except stating that one side of the brain has psychosis and the other side has the drugs. He was irritable, hostile, and left abruptly to go to his room. Onleading questions he denied feeling depressed or anxious. He stated, I am mad, I dont think I need to be here, I am being bullied by the police and my mother. The patient got hostile and left the room. He was irritable, agitated and provoked easily. He was impulsive, unpredictable, and appeared aggressive. Past Psychiatric History: The patient has h/o Schizophrenia, and PTSD. He has h/o multiple psychiatric hospitalizations. His last hospitalization in November,. He has no h/o suicidal or homicidal ideation or behavior in the past. Past Medical History: Hepatitis C Allergies: Sulfa drugs, as per chart ALLERGIES: Allergies Substance Abuse: The patient has history of substance abuse. He admitted to Marijuana. Opioids. He smokes: I pack of cigarettes a day. Social and Family History Patient was born and raised in [place]. He is currently on disability. He aj es by himself. He reports that he only completed up to the third grade. Family History: None reported MSE: Alert and attentive. Orientation times three Dressed and Groomed: Disheveled. Hostile, irritable and un-cooperative. Psychomotor Activity: Normal. Speech: Normal in tone, quality, and quantity. Mood: Angry and upset. Affect: Irritable. SI or HI: None. Perceptual disturbance: No overt hallucinatory behavior noted. Thought Content: Paranoid ideations. No other delusional thinking noted.; Thought Process: Normal. Cognition: Intact Judgment and Insight: Poor AIMS: Normal Labs: Available labs reviewed. IMPRESSIONS: Schizoaffective disorder, depressive type Possible Substance induced psychosis H/O Polysubstance abuse. Plan and Recommendations: Continue current Medications. Monitor MS and side effects of medications and adjust medications accordingly. Provide supportive psychotherapy and psychoeducation. The patient provided psychoeducation. Te patient provided with substance abuse counselling and advised to attend AA/NA Smoke cessation therapy. The patient to attend [facility]. CBC with Diff, CMP, TSH, Lipid Profile, HbA1c, EKG. Ordered. Medication Consent with explanation of risk/benefits and side effects: Explained and obtained.
[2024-05-03 08:49] LABS: Basophils % (A) 1 %; Eosinophils # (A) 0.2 k/uL (0-0.7); Eosinophils % (A) 4 %; HCT 41.3 % (34.0-46.0); HGB 13.7 gm/dL (11.4-16.0); Lymphocytes # (A) 1.9 k/uL (1.0-4.8); Lymphocytes % (A) 35 %; MCH 31.1 pg (25.0-35.0); MCHC 33.1 g/dL (31.0-37.0); Mean Platelet Volume 8.7; Monocytes # (A) 0.3 k/uL (0-1.0); Monocytes % (A) 6 %; Neutrophils # (A) 2.9 k/uL (1.3-7.7); Neutrophils % (A) 52 %; Platelet Count 345 k/uL (150-450); RBC 4.39 m/uL (3.80-5.40); RDW 12.6 % (11.5-15.5); WBC 5.5 k/uL (3.8-10.6)
[2024-05-03 08:55] LABS: ALT 17 U/L (4-34); AST 34 U/L (14-36); African American GFR (CKD) >90 (>60 ml/min/1.73 sqM); Albumin 4.4 g/dL (3.5-5.0); Alkaline Phosphatase 60 U/L (38-126); Anion Gap 6 mmol/L; Blood Urea Nitrogen 10 mg/dL (7-17); Calcium 9.5 mg/dL (8.4-10.2); Carbon Dioxide 27 mmol/L (22-30); Chloride 107 mmol/L (98-107); Glucose 87 mg/dL (74-99); Non-African American GFR(CKD) >90 (>60 ml/min/1.73 sqM); Potassium 4.6 mmol/L (3.5-5.1); Sodium 140 mmol/L (137-145); Total Bilirubin 0.4 mg/dL (0.2-1.3); Total Protein 7.1 g/dL (6.3-8.2)
--- NOTE | 2024-05-03 10:20 | P.HP ---
Psychiatric H&P - . H&P Date: 05/02/24 History & Physical: 05/02/24 09:55 Psychiatric Evaluation Identifying Data: Ms. Ponce is 33 years old, single, white female, who lives in [place], [place] with her grandmother. Chief Complaint: my uncle brought me here History of Psychiatric Illness- The patient noted that she was brought to the hospital by her uncle because her grandmother told him that she was not acting right. She noticed that the patient was acting irritable, agitated, and suicidal. The patient stated that she told her grandmother and mother that she would pour gasoline and burn herself in order to punish them because they were punishing her by asking her to eat certain foods, put on lots of weight and get a boob job. The patient noted that she was in rehab for Adderall addiction. She was discharged on April 13. She was taking Lexapro but her grandmother wanted her to stop it and go on certain diet. The patient noted that all this makes her very frustrated and angry. She deals with this by diverting her mind by exercising, yoga, read and attending AA/NA meetings. The patient noted that she is in arranged marriage but she did not know about it but her fianc knew. He wants er to get a boob job. He is also sleeping with another girl She feels revengeful and wanted to hurt her but does not feel like that anymore. The patient noted that she does not feel good after getting angry. She wants to address it. The patient noted that she was first admitted in 2022 to this hospital. She noted that she first sought psychiatric treatment at age 10 for Depression because her paternal grandmother and maternal uncle . She went f or counseling. The patient was given Adderall and Vyvanse in 10th grade. She was also prescribed Klonopin but she did not take it, as per patient. In 12 th grade she was prescribed SSRIs, as per patient. She was given Wellbutrin, Zoloft, Lexapro, Effexor, Remeron, Risperdal, Zyprexa, Trazodone, Concerta. She has been treated off on since then. Her first psychiatric admission was in 2022. She has no h/o suicidal ideations or behaviors in the past. She noted being in substance abuse rehab twice. The patient noted that she has been given diagnoses of Depression, Bipolar disorder, ADHD Past Psychiatric History: As stated above. Past Medication History: As stated above. Leading questions: The patient admitted to Depression and Anxiety. Denied SI or HI. Denied symptoms consistent with psychosis Drugs and alcohol history: Alcohol, Stimulants, Marijuana. She experimented with Cocaine, LSD. She has been in rehab twice. Tobacco use: She smokes half a pack of cigarettes a day Past Medical history: None significant. Family History of Psychiatric Disorder: Social History and Family History: The patient was born and raised in [place], [place]. She grew-up by herself. Her only sibling at age 1 month. The patient finished HS and has BSN and BS. 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 OTC: Vitamins and supplements. Allergies: None, as per patient. Objective: MSE: Alert and attentive. Orientation times three Dressed and Groomed: Appropriately. Pleasant and cooperative. Psychomotor Activity: Normal. Speech: Normal in tone, quality, and quantity. Mood: Upset and angry Affect: Appropriate to the mood. SI or HI: None. Perceptual disturbance: No overt hallucinations. Thought Content: Paranoid ideations. No other delusional thinking noted. Thought Process: The patient displays odd and strange logic and contradicts herself Cognition: Intact Judgment and Insight: Poor. AIMS: Normal Labs: Available labs reviewed. Diagnosis: Psychosis, NOS Polysubstance abuse Plan and Recommendations: Geodon 20 mg with meals in the morning preferably after breakfast. Wellbutrin 100 mg po daily. Monitor MS and side effects of medications and adjust medications accordingly. Provide supportive psychotherapy and psychoeducation. The patient provided psychoeducation. The patient provided with substance abuse counselling and advised to attend AA/NA Smoke cessation therapy. The patient to attend [facility]. Lipid Profile, HbA1c, EKG, ordered. Medication Consent with explanation of risk/benefits and side effects: Explained and obtained.
[2024-05-03] MEDS: ZIPRASIDONE 20 MG CAP PO STA (11:28)
[2024-05-03 15:54] LABS: Chol/HDL Ratio 2.53 Ratio; LDL Cholesterol,Calculated 97.7 mg/dL (0.0-131.0); VLDL Calculation 12.86 mg/dL (5.00-40.00)
[2024-05-03] MEDS: IBUPROFEN 600 MG TAB PO PRN (19:48)
--- NOTE | 2024-05-03 22:09 | P.PN ---
Progress Note - Text Progress Note Date: 05/03/24 Carl Reese Follow-up Mediation Review Chief Complaint: Subjective: Complaint since yesterday: The patient has not / been attending the groups. The participation is limited / good. The interaction with staff and peers is limited / good. The patient is not / compliant with treatment recommendations. Leading questions: The patient denied /admitted to Depression and Anxiety. Denied SI or HI. Denied symptoms consistent with psychosis Sleep and Appetite: Change in family/ living/job/financial/daily routine: No change. Change in medical condition: No change. Change in medications: No change. Side effects from Medications: None. Allergies: No change. Objective- MSE: Alert and attentive. Orientation times three. Dressed and Groomed: Appropriately. Pleasant and cooperative. Psychomotor Activity: Normal. Speech: Normal in tone, quality and quantity. Mood: Affect: SI or HI: None. Perceptual disturbance: None. Thought Content: No paranoia or other delusional thinking noted. Thought Process: Normal. Cognition: Intact Judgment and Insight: Good AIMS: Normal. Labs: No new labs. Diagnosis: Plan and Recommendations: Continue current Medications. Monitor MS and side effects of medications and adjust medications accordingly. Provide supportive psychotherapy. The patient provided psychoeducation and advised The patient provided Substance abuse counseling. Smoke cessation therapy. The patient to attend [facility] activities. CBC with Diff, CMP, TSH, Lipid Profile, HbA1c, EKG, Test ordered. Medication Consent with explanation of risk/benefits and side effects: Explained and obtained.
[2024-05-04] MEDS: buPROPion SR 100 MG TABLET.ER PO SCH (09:13)
[2024-05-04] MEDS: ZIPRASIDONE 20 MG CAP PO SCH ×2 (10:16→20:48)
--- NOTE | 2024-05-04 13:46 | P.HPIM ---
History of Present Illness H&P Date: 05/03/24 Chief Complaint: Suicidal ideation, delirious, agitated This is a 33-year-old female with past medical history significant for depression, recently completed rehab for Adderall addiction, brought into the hospital by her uncle related to she was not using her psychiatric medications, expressed suicidal thoughts. Patient reports she no longer smokes marijuana or abuses mushrooms. Currently rambling, appears delusional at times. Reports her mother and grandmother encouraging her to eat fast foods, put on weight and get a boob job. Patient reports, unbeknownst to her, she was in an arranged marriage, discovered that her fianc was cheating on her. 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 Denies auditory or visual hallucinations. Denies chest pain, palpitations or shortness of breath. Denies cough, congestion. Denies chest pain, palpitations or shortness of breath. Afebrile, vital signs stable, maintaining O2 sats in the high 90s to 100% on room air. Denies nausea vomiting or diarrhea. Denies abdominal pain. Denies pain. Hematology, chemistry panels unremarkable. UA negative, toxicology detected THC. Viral studies negative. Review of Systems ROS Statement: Those systems with pertinent positive or pertinent negative responses have been documented in the HPI. ROS Other: All systems not noted in ROS Statement are negative. Past Medical History Past Medical History: No Reported History History of Any Multi-Drug Resistant Organisms: None Reported Past Surgical History: No Surgical Hx Reported Smoking Status: Former smoker Medications and Allergies Home Medications Medication Instructions Recorded Confirmed Type No Known Home Medications 05/01/24 05/01/24 History Allergies Allergy/AdvReac Type Severity Reaction Status Date / Time No Known Allergies Allergy Verified 05/01/24 22:26 Physical Exam Vitals: Vital Signs Temp Pulse Resp BP Pulse Ox 05/04/24 06:47 98 F 102 H 16 109/77 99 VS: Afebrile, pulse 88, respiratory rate 20, blood pressure 96/68, maintaining O2 sats in the high 90s to 100% on room air. GENERAL: Well-developed, well-nourished , alert and oriented x 3, speech fluent ,conversing/rambling, making eye contact. HEENT: Normocephalic, atraumatic ,pupils are round and equally reacting to light. EOMI. no scleral icterus. No conjunctival pallor. CARDIOVASCULAR: S1 and S2 , muffled PULMONARY: Unlabored, equal air entry,CTA ABDOMEN: soft. Nondistended, nontender, +BS,No rigidity, no guarding, no palpable organomegaly EXTREMITIES: No cyanosis, clubbing, or pedal edema. NEUROLOGICAL: Gross neurological examination did not reveal any focal deficits. SKIN: Warm and dry, no rashes. Results CBC & Chem 7: 05/03/24 07:54 05/03/24 07:54 Labs: Abnormal Lab Results - Last 24 Hours (Table) 05/03/24 Range/Units 07:54 HDL Cholesterol 72.40 H (40.00-60.00) mg/dL Thrombosis Risk Factor Assmnt - Choose All That Apply Any of the Below Risk Factors Present?: No Other Risk Factors: No Other congenital or acquired thrombophilia - If yes, enter type in comment: No Thrombosis Risk Factor Assessment Level: Very Low Risk Assessment and Plan Assessment: Suicidal ideation Polysubstance abuse, toxicology positive for marijuana Psychosis Depression and anxiety Bipolar, history of History of prescription drug abuse Former smoker History of cannabis use disorder, severe dependence, reports she quit History of hallucinogen abuse, uses mushrooms, reports she quit Plan: Continue on current medication regimen ,monitoring and symptomatic treatment. Encourage compliance with psychotherapy. Labs reviewed. Hemoglobin A1c 5.4. Vital signs stable.we will follow along PRN. Thank you for the consult. The impression and plan of care has been dictated as directed. : I performed a history and examination of this patient, discussed the same with the dictator. I agree with the dictator's note ,documented as a scribe. Any additional findings or plans will be noted.
--- NOTE | 2024-05-04 15:49 | P.PN ---
Progress Note - Text Progress Note Date: 05/04/24 Follow-up Mediation Review Chief Complaint: I am tired and sleepy Subjective: The patient noted that the medications are making her tired. She believes it could be Seroquel. Discussed decreasing the dose, the patient agreed. The patient talked about her boyfriends affair and medications being pushed on her by her family. She noted attending one group this morning but has not gone since then to any activities because she has been sleeping. The patient does not show any understanding of her illness. The patient did not attend two today. Her participation in [facility] activities remains limited. The interaction with staff and peers is limited. The patient is compliant with treatment recommendations. Leading questions: The patient admitted to Depression and Anxiety. Denied SI or HI. Denied symptoms consistent with psychosis Sleep and Appetite: Fine. Change in family/ living/job/financial/daily routine: No change. Change in medical condition: No change. Change in medications: No change. Side effects from Medications: None. Allergies: No change. Objective- MSE: Alert and attentive. Orientation times three. Dressed and Groomed: Appropriately. Pleasant and cooperative. Psychomotor Activity: Normal. Speech: Normal in tone, quality, and quantity. Mood: Depressed and anxious. Affect: Consistent with mood. SI or HI: None. Perceptual disturbance: None. Thought Content: The patient exhibits paranoid delusions. No other delusional thinking noted. Thought Process: Some odd and strange and self-contradictory Cognition: Intact Judgment and Insight: Poor AIMS: Normal. Labs: Available labs discussed Diagnosis: No change Plan and Recommendations: Continue current Medications. Decrease Seroquel to 50 mg po has. Monitor MS and side effects of medications and adjust medications accordingly. Provide supportive psychotherapy. The patient provided psychoeducation and advised The patient provided Substance abuse counseling. Smoke cessation therapy. The patient to attend ped[facility] activities. Medication Consent with explanation of risk/benefits and side effects: Explained and obtained.
[2024-05-04] MEDS: QUEtiapine 50 MG TAB PO PRN (23:02)
[2024-05-05] MEDS: buPROPion SR 150 MG TABLET.ER PO SCH (08:35)
--- NOTE | 2024-05-05 13:33 | P.PN ---
Progress Note - Text Progress Note Date: 05/05/24 Follow-up Mediation Review Chief Complaint: I slept good, I am not sleepy today Subjective: The patient noted that she was very tired yesterday. She is feeling better today. The patient continues to talking about her finance his affair and the girl with whom he is having sex. Then she talked about her thoughts of herself and other and now she is fine. She shows extreme amount of ambivalence. She wants to drink water than stop drinking water because her blood pressure is going through the roof. Discussed with patient regarding her Geodon. The patient agreed and consented. The patient has been attending groups. Her participation is adequate. She interacting with staff and pees. He interaction is good. She has been compliant with medications. Leading questions: The patient admitted to Depression and Anxiety. Denied SI or HI. Denied symptoms consistent with psychosis. Sleep and Appetite: Fine. Change in family/ living/job/financial/daily routine: the patient grandmother does not want her to come back home. Change in medical condition: No change. Change in medications: No change. Side effects from Medications: None. Allergies: No change. Objective- MSE: Alert and attentive. Orientation times three. Dressed and Groomed: Appropriately. Pleasant and cooperative. Psychomotor Activity: Normal. Speech: Normal in tone, quality, and quantity. Mood: Depressed and anxious. Affect: Consistent with mood. SI or HI: None. Perceptual disturbance: None. Thought Content: The patient exhibits paranoid delusions. No other delusional thinking noted. Thought Process: Revealed tangentiality, loose associations Cognition: Intact Judgment and Insight: Poor AIMS: Normal. Labs: Available labs discussed Diagnosis: No change Plan and Recommendations: Continue current Medications. Increase Geodon to 20 mg po bid.. Monitor MS and side effects of medications and adjust medications accordingly. Provide supportive psychotherapy. The patient provided psychoeducation and advised The patient provided Substance abuse counseling. Smoke cessation therapy. The patient to attend ped[facility]za activities. Medication Consent with explanation of risk/benefits and side effects: Explained and obtained.
[2024-05-05] MEDS: haloperidoL 5 MG TAB PO PRN (14:13)
[2024-05-05] MEDS: ZIPRASIDONE 20 MG CAP PO SCH (20:23)
--- NOTE | 2024-05-06 19:41 | P.PN ---
Progress Note - Text Progress Note Date: 05/06/24 Interval History: Patient was seen wandering the hallways and was directable and agreeable to speak with typewriter assembler in the office. patient is pleasant although flat on interaction. She reports noticing increased anxiety and feeling mild sexual discomfort since being on Wellbutrin. She is agreeable with discontinuing this medication. She reports feeling tired during the daytime on Geodon and is agreeable with changing it to bedtime. Patient states that she is otherwise doi ng well. She mentions "being controlled "and feels that others are "watching what I do". She endorses sleeping well with Geodon without needing as needed Seroquel. At this time patient denies any suicidal or homicidal ideations, intent or plan. Patient denies any auditory, visual hallucinations and denies any paranoia or delusions. Patient has been compliant with meds. Mental Status Exam: Alert and attentive. Orientation times three. Dressed and Groomed: Appropriately. Pleasant and cooperative. Psychomotor Activity: Normal. Speech: Normal in tone, quality, and quantity. Mood: anxious. Affect: Flat SI or HI: None. Perceptual disturbance: None. Thought Content: The patient exhibits paranoid delusions. Thought Process: More linear and goal-oriented Cognition: Intact Judgment and Insight: Poor Assessment unspecified psychosis Polysubstance use- alcohol, stimulants, cannabis Plan: -Patient continues to meet criteria for inpatient psychiatric admission for symptom stabilization and safety. -Medications: discontinue Wellbutrin 150 mg daily Change Geodon to 40 mg at bedtime. QTc was 442 continue Seroquel 50 mg at bedtime as needed for sleep -When necessary Ativan and Haldol for agitation/aggression. -NRT - nicotine patch -SW on board for discharge planning. Encouraged the patient to participate in milieu.
[2024-05-06] MEDS: ZIPRASIDONE 40 MG CAP PO SCH (22:15)
[2024-05-06] MEDS: LORazepam 1 MG TAB PO PRN (22:16)
--- NOTE | 2024-05-07 17:51 | P.PN ---
Progress Note - Text Progress Note Date: 05/07/24 Interval History: Patient was seen wandering the hallways and was directable and agreeable to can mcbride with software writer in the office. she states that she has been feeling significantly better since being discontinued off of Wellbutrin. she did not realize that she is not on scheduled Haldol or Seroquel. As a result, patient states that she accepted both of those in addition to his scheduled Geodon last night. She was encouraged to not take these unless needed. She was agreeable with increasing Geodon today. She states that she is afraid of decompensation and losing control of herself upon discharge. However, discusses that patient will be stabilized prior to considering discharge. She states she is comfortable with current medication regimen. She endorses very good sleep due to medications from last night. She endorses feeling slightly tired during the daytime today. She endorses good appetite. She denies other concerns. At this time patient denies any suicidal or homicidal ideations, intent or plan. Patient denies any auditory, visual hallucinations and denies any paranoia or delusions. Patient has been compliant with meds. Mental Status Exam: Alert and attentive. Orientation times three. Dressed and Groomed: Appropriately. Pleasant and cooperative. Psychomotor Activity: Normal. Speech: Normal in tone, quality, and quantity. Mood: anxious. Affect: Flat SI or HI: None. Perceptual disturbance: None. Thought Content: The patient exhibits paranoid delusions. Thought Process: More linear and goal-oriented Cognition: Intact Judgment and Insight: Poor Assessment unspecified psychosis. Likely schizoaffective disorder Polysubstance use- alcohol, stimulants, cannabis Plan: -Patient continues to meet criteria for inpatient psychiatric admission for symptom stabilization and safety. -Medications: Increase Geodon to 60 mg at bedtime. QTc was 442 continue Seroquel 50 mg at bedtime as needed for sleep -When necessary Ativan and Haldol for agitation/aggression. -NRT - nicotine patch -SW on board for discharge planning. Encouraged the patient to participate in milieu.
[2024-05-07] MEDS: ZIPRASIDONE 60 MG CAP PO SCH (20:37)
[2024-05-07] MEDS: MAGNESIUM HYDROXIDE 2,400 MG/30 ML CUP PO PRN (20:38)
--- NOTE | 2024-05-08 22:30 | P.PN ---
Progress Note - Text Progress Note Date: 05/08/24 Follow-up Mediation Review Chief Complaint: I am doing better, looking at the circumstances Subjective: The patient noted that she is not hallucinating anymore. She noted that her Wellbutrin is stopped because she was feeling sexually aroused. She now wants to take SSRI. She agreed for Zoloft. She noted that she had two doses of Haldol over the weekend. She said, I am afraid that I will be back here. She wants to be on Depakote but then she is not sure. The patient did not bring up anything bout family, fianc or his girlfriend. regarding her Fianc or the girlfriend, he is having sex with. Her Geodon was increased to 60 mg. The patient expressed interest in going to [facility]. The patient reported no side effects. The patient has been attending groups. Her participation is adequate. She interacting with staff and pees. He interaction is good. She has been compliant with medications. Leading questions: The patient admitted to Depression and Anxiety. Denied SI or HI. Denied symptoms consistent with psychosis. Sleep and Appetite: Fine. Change in family/ living/job/financial/daily routine: No change. Change in medical condition: No change. Change in medications: No change. Side effects from Medications: None. Allergies: No change. Objective- MSE: Alert and attentive. Orientation times three. Dressed and Groomed: Appropriately. Pleasant and cooperative. Psychomotor Activity: Normal. Speech: Normal in tone, quality, and quantity. Mood: Depressed and anxious. Affect: Consistent with mood. SI or HI: None. Perceptual disturbance: None. Thought Content: No paranoia or other delusional content noted. Thought Process: Continues to be tangential. Has mild loose associations Cognition: Intact Judgment and Insight: Poor AIMS: Normal. Labs: Available labs discussed Diagnosis: No change Plan and Recommendations: Continue current Medications. Monitor MS and side effects of medications and adjust medications accordingly. Provide supportive psychotherapy. The patient provided psychoeducation and advised The patient provided Substance abuse counseling. Smoke cessation therapy. The patient to attend ped[facility]za activities. Medication Consent with explanation of risk/benefits and side effects: Explained and obtained.
[2024-05-09] MEDS: SERTRALINE 50 MG TAB PO SCH (09:17)
--- NOTE | 2024-05-09 17:08 | P.PN ---
Progress Note - Text Progress Note Date: 05/09/24 Follow-up Mediation Review Chief Complaint: I am feeling good Subjective: The patient noted that she is doing much better than before. She feels that the medications are working. She has no side effects. The patient is planning to go to [facility] for rehab. She is on wait list. The patient did not exhibit any delusional thinking today. She shows significant ambivalence about taking medications, drinking water, and eating. The patient reported no side effects. The patient has been attending groups. Her participation is adequate. She interacting with staff and pees. Her interaction is good. She has been compliant with medications. Leading questions: The patient admitted to mild anxiety. Denied SI or HI. Denied symptoms consistent with psychosis. Sleep and Appetite: Fine. Change in family/ living/job/financial/daily routine: No change. Change in medical condition: No change. Change in medications: No change. Side effects from Medications: None. Allergies: No change. Objective- MSE: Alert and attentive. Orientation times three. Dressed and Groomed: Appropriately. Pleasant and cooperative. Psychomotor Activity: Normal. Speech: Normal in tone, quality, and quantity. Mood: Depressed and anxious. Affect: Consistent with mood. SI or HI: None. Perceptual disturbance: None. Thought Content: No paranoia or other delusional content noted. Thought Process: Normal Cognition: Intact Judgment and Insight: Fair. AIMS: Normal. Labs: Available labs discussed Diagnosis: No change Plan and Recommendations: Continue current Medications. Monitor MS and side effects of medications and adjust medications accordingly. Provide supportive psychotherapy. The patient provided psychoeducation and advised The patient provided Substance abuse counseling. Smoke cessation therapy. The patient to attend pedroza activities. Medication Consent with explanation of risk/benefits and side effects: Explained and obtained.
[2024-05-10] MEDS ORDERED: SERTRALINE 50 MG TAB PO PRN (12:26)
[2024-05-10 15:46] LABS: Appearance,Urine Clear (Clear); Bilirubin,Urine Negative (Negative); Blood,Urine Negative (Negative); Color,Urine Colorless; Glucose,Urine (UA) Negative (Negative); Ketones,Urine Negative (Negative); Leukocyte Esterase,Urine Negative (Negative); Nitrite,Urine Negative (Negative); Protein,Urine Negative (Negative); Specific Gravity,Urine 1.004 (1.001-1.035); Urobilinogen,Urine <2.0 mg/dL (<2.0)
--- NOTE | 2024-05-10 17:15 | P.PN ---
Progress Note - Text Progress Note Date: 05/10/24 Follow-up Mediation Review Chief Complaint: I am doing well Subjective: The patient noted that she is doing much better than before. She did note feeling sad but then stated, I am having qiana.. The patient reported no side effects. The patient has been attending groups. Her participation is adequate. She interacting with staff and pees. Her interaction is good. She has been compliant with medications. Leading questions: The patient admitted to mild anxiety. Denied SI or HI. Denied symptoms consistent with psychosis. Sleep and Appetite: Fine. Change in family/ living/job/financial/daily routine: No change. Change in medical condition: No change. Change in medications: No change. Side effects from Medications: None. Allergies: No change. Objective- MSE: Alert and attentive. Orientation times three. Dressed and Groomed: Appropriately. Pleasant and cooperative. Psychomotor Activity: Normal. Speech: Normal in tone, quality, and quantity. Mood: Depressed and anxious. Affect: Consistent with mood. SI or HI: None. Perceptual disturbance: None. Thought Content: No paranoia or other delusional content noted. Thought Process: Normal Cognition: Intact Judgment and Insight: Fair. AIMS: Normal. Labs: Available labs discussed Diagnosis: No change Plan and Recommendations: Continue current Medications. Monitor MS and side effects of medications and adjust medications accordingly. Provide supportive psychotherapy. The patient provided psychoeducation and advised The patient provided Substance abuse counseling. Smoke cessation therapy. The patient to attend pedroza activities. Medication Consent with explanation of risk/benefits and side effects: Explained and obtained.
[2024-05-10] MEDS: ZIPRASIDONE 80 MG CAP PO SCH (20:29)
[2024-05-11] MEDS: SERTRALINE 50 MG TAB PO SCH (14:27)
[2024-05-11] MEDS: QUEtiapine 50 MG TAB PO PRN (20:29)
[2024-05-12 03:55] LABS: Appearance,Urine Clear (Clear); Bilirubin,Urine Negative (Negative); Blood,Urine Negative (Negative); Color,Urine Colorless; Glucose,Urine (UA) Negative (Negative); Ketones,Urine Negative (Negative); Leukocyte Esterase,Urine Negative (Negative); Nitrite,Urine Negative (Negative); Protein,Urine Negative (Negative); Specific Gravity,Urine 1.004 (1.001-1.035); Urobilinogen,Urine <2.0 mg/dL (<2.0)
--- NOTE | 2024-05-12 10:11 | P.PN ---
Progress Note - Text Progress Note Date: 05/11/24 Interval history: Patient was seen eating lunch and was directable and agreeable to speak with casualty underwriter. She reports good mood and appetite. She has not had her Zoloft yet this morning, it is now ordered as Zoloft 50 mg QHS PRN. She reports fair sleep and would like her Seroquel increased at bedtime. At this time patient denies any suicidal or homicidal ideations intent or plan. Denies any auditory or visual hallucinations. Patient denies any side effects from the medications and has been compliant with meds. Mental status exam: General Appearance: Patient appears to be stated age is alert, directable, and cooperative. Behavior: No agitated behavior. Patient is calm and directable Speech: Patient's speech is fluent and nonpressured. Mood/Affect: Mood is improving, affect is congruent and constricted. Suicidality/Homicidality: Patient denies having any suicidal or homicidal ideation intent or plan. Perceptions: Patient denies any auditory or visual hallucinations. Though content/process: There is no evidence of any delusional thought content and thought process is linear and goal-directed. Memory and concentration: AOX3, grossly intact for the purposes of this session Judgment and insight: improving mildly Assessment/Plan: Continue with current diagnosis. Patient continues to meet criteria for inpatient psychiatric admission for symptom stabilization and safety. Resume Zoloft at 50 mg daily starting today. Increase Seroquel to 100 mg QHS PRN for sleep/mood. Monitor for medication compliance and for any psychotropic medication side effects. Will continue to monitor ongoing response to treatment. Encouraged participation in milieu.
--- NOTE | 2024-05-12 12:27 | P.PN ---
Progress Note - Text Progress Note Date: 05/12/24 Follow-up Mediation Review Chief Complaint: I am finally on right medications Subjective: The patient noted that she feels good. She noted that finally her medications have been adjusted right. She does not want to change anything. The patient was holding coherent goal directed conversation. She has been noted to be much more organized in her conversations without any delusional content. The patient plans to go to her grandmother after discharge and finish some of the projects she had started before coming here and then may rent a room from a friend and live by herself. The patient reported no side effects. The patient has been attending groups. Her participation is good.. She interacting with staff and pees. Her interaction is good. She has been compliant with medications. Leading questions: The patient admitted to mild anxiety. Denied SI or HI. Denied symptoms consistent with psychosis. Sleep and Appetite: Fine. Change in family/ living/job/financial/daily routine: No change. Change in medical condition: No change. Change in medications: No change. Side effects from Medications: None. Allergies: No change. Objective- MSE: Alert and attentive. Orientation times three. Dressed and Groomed: Appropriately. Pleasant and cooperative. Psychomotor Activity: Normal. Speech: Normal in tone, quality, and quantity. Mood: I am feeling fine.. Affect: Consistent with mood. SI or HI: None. Perceptual disturbance: None. Thought Content: No paranoia or other delusional content noted. Thought Process: Normal Cognition: Intact Judgment and Insight: Fair. AIMS: Normal. Labs: Available labs discussed Diagnosis: No change Plan and Recommendations: Continue current Medications. Monitor MS and side effects of medications and adjust medications accordingly. Provide supportive psychotherapy. The patient provided psychoeducation and advised The patient provided Substance abuse counseling. Smoke cessation therapy. The patient to attend pedroza activities. Medication Consent with explanation of risk/benefits and side effects: Explained and obtained.
[2024-05-13] MEDS ORDERED: QUEtiapine 50 MG TAB PO PRN (20:15)
[2024-05-13] MEDS: QUEtiapine 200 MG TAB PO SCH (21:10)
[2024-05-13] MEDS: ZIPRASIDONE 40 MG CAP PO SCH (21:10)
--- NOTE | 2024-05-14 21:04 | P.PN ---
Progress Note - Text Progress Note Date: 05/13/24 Interval history: Patient was seen in the hallway near the medication window and agreeable to speak with va underwriter. She reports frustration over her medications and does not want to be on two antipsychotics and wants to switch doctors; does not know why she is on the Geodon and wants to discontinue it and start Risperdal instead. She states she has taken Risperdal in the past but also admits it did not work well for her. She reports she did not sleep well last night and is concerned she will not sleep well again tonight. At this time patient denies any suicidal or homicidal ideations intent or plan. Denies any auditory or visual hallucinations. Patient has been compliant with meds. Mental status exam: General Appearance: Patient appears to be stated age, average hygiene/grooming, dressed in clean casual attire. Behavior: No agitated behavior. Patient is frustrated and talking loudly. Speech: Patient's speech is fluent and non-pressured. Mood/Affect: Mood is irritated, affect is congruent and constricted. Suicidality/Homicidality: Patient denies having any suicidal or homicidal ideation intent or plan. Perceptions: Patient denies any auditory or visual hallucinations. Though content/process: There is no evidence of any delusional thought content and thought process is perseverative. Memory and concentration: AOX3, grossly intact for the purposes of this session Judgment and insight: Improving mildly Assessment/Plan: Continue with current diagnosis. Patient continues to meet criteria for inpatient psychiatric admission for symptom stabilization and safety. Decrease Geodon to 40 mg QHS with plan to further taper and discontinue. Increase Seroquel to 200 mg QHS plus 50 mg QHS PRN for insomnia. Monitor for medication compliance and for any psychotropic medication side effects. Will continue to monitor ongoing response to treatment. Encouraged participation in milieu.
--- NOTE | 2024-05-14 21:10 | P.PN ---
Progress Note - Text Progress Note Date: 05/14/24 Interval history: Patient was seen in her room chatting with her roommate and is agreeable to speak with show card writer. She is more calm today, reports she slept well last night and feels "a bit better" on the higher dose of the Seroquel and lower dose of Geodon. She does not want to be on two antipsychotics so she is in agreement with continuing to crosstaper off of the Geodon and increase the Seroquel. She did not utilize the additional Seroquel 50 mg QHS PRN last night. At this time patient denies any suicidal or homicidal ideations intent or plan. Denies any auditory or visual hallucinations. Patient has been compliant with meds and denies medication side effects today. She plans to return to her grandmother's house after discharge. Mental status exam: General Appearance: Patient appears to be stated age, average hygiene/grooming, dressed in clean casual attire. Behavior: No agitated behavior. Patient is more calm today, still fixated on her medications but more easily redirectable. Speech: Patient's speech is fluent and non-pressured. Mood/Affect: Mood is "a bit better", affect is congruent and constricted. Suicidality/Homicidality: Patient denies having any suicidal or homicidal ideation intent or plan. Perceptions: Patient denies any auditory or visual hallucinations. Though content/process: There is no evidence of any delusional thought content and thought process is perseverative. Memory and concentration: AOX3, grossly intact for the purposes of this session Judgment and insight: Improving mildly Assessment/Plan: Continue with current diagnosis. Patient continues to meet criteria for inpatient psychiatric admission for symptom stabilization and safety. Discontinue Geodon per patient preference. Increase Seroquel to 250 mg QHS plus 50 mg QHS PRN for insomnia. Monitor for medication compliance and for any psychotropic medication side effects. Will continue to monitor ongoing response to treatment. Encouraged participation in milieu.
[2024-05-14] MEDS: QUEtiapine 50 MG TAB PO SCH (22:33)
[2024-05-15] MEDS: HALOPERIDOL LACTATE 5 MG/ML 1 ML VIAL IM PRN (15:17)
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
[2024-05-15] MEDS: ZIPRASIDONE 40 MG CAP PO SCH (20:33)
[2024-05-16 12:00] VITALS: BMI 24.6
--- NOTE | 2024-05-16 13:23 | P.PN ---
Progress Note - Text Progress Note Date: 05/16/24 Interval History: Patient was seen this morning. She was directable and agreeable to speak with loan underwriter in the office. She shared her perspective about the events that transpired yesterday and resulted in restraints and PRNs being administered. She did have insight about how her behavior prompted this situation and was observed apologizing to a human resources team member. She notes the overall improvement she feels on Geodon as compared to the mood instability she observed without this medication being on board. She remains open to further titration back to her prior dose of 80 mg at bedtime and we discussed that this would occur tonight. Additionally she notes her mood as "pretty good." She was "feeling anxious" yesterday evening and requested a PRN but has not had any PRNs since that time. Upon general review of symptoms she reported some difficulty initiating urinary stream which made her concerned for UTI. She's had several unremarkable UAs to date. She also described feeling flushed and having some constipation. At this time patient denies any suicidal or homical ideations, intent or plan. Patient denies any auditory, visual hallucinations and denies any paranoia or delusions. She does sometimes have intrusive thoughts that are somewhat explict and can be distressing to her, but this is not a frequent occurrence. Patient has been compliant with meds. Mental Status Exam: General Appearance: Patient appears to be stated age is alert, directable, and cooperative. Appropriate grooming. Behavior: Patient is calmly seated without any agitated behavior. Speech: Patient's speech is fluent and nonpressured. Mood/Affect: Mood is "pretty good", affect is congruent and constricted. Suicidality/Homicidality: Patient denies having any suicidal or homicidal ideation intent or plan. Perceptions: Patient denies any visual hallucinations and denies any auditory hallucinations Though content/process: There is no evidence of any delusional thought content and thought process is linear and goal-directed. Memory and concentration: AOX3, grossly intact for the purposes of this session Judgment and insight: Improving mildly Assessment Xiomara Ponce is a 33 year old woman with a history of psychosis and substance abuse who has been stabilizing but experienced increase in agitation when she was briefly trialed off ziprasidone. She has insight about this medication's efficacy in maintaining mood stability and helping her feel like herself. She is presently experiencing some symptoms that may be related to anticholinergic side effects. She has had difficulty initiating urine stream which she thought may have been related to an emerging UTI, though this has been ruled out, and is endorsing constipation and dry mouth. Of note, vital signs are stable; no persistent tachycardia or hypertension. We will continue to monitor and make a bowel regimen available to address the constipation. Will reassess tomorrow and consider whether dose adjustments are needed. Plan: -Patient continues to meet criteria for inpatient psychiatric admission for symptom stabilization and safety. Patient has not signed adult voluntary form and medication consent and was placed in patient's chart. -Medications: - Increase ziprasidone to 80 mg at bedtime - Continue quetiapine 250 mg at bedtime - Continue sertraline 50 mg daily - Continue Trazodone 50 mg at bedtime PRN insomnia - Will order colace and senna PRN for constipation -When necessary Ativan and Haldol for agitation/aggression. -NRT - Will decrease to 7mg/24hr patch per patient request -SW on board for discharge planning. Encouraged the patient to participate in milieu.
[2024-05-16] MEDS ORDERED: SENNOSIDES 8.6 MG TAB PO PRN (13:24)
[2024-05-16] MEDS: ZIPRASIDONE 80 MG CAP PO SCH (21:24)
[2024-05-16] MEDS: traZODone HCL 50 MG TAB PO PRN (21:34)
[2024-05-17] MEDS: NICOTINE 7MG/24HR PATCH TRANSDERM SCH (08:51)
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
--- NOTE | 2024-05-17 15:41 | P.PN ---
Progress Note - Text Progress Note Date: 05/17/[address] Dominguez patient and we are currently covering for Dr. Dominguez Patient is seen and evaluated today with reports of pain and burning with frequency with urination and reports a series of urinalysis have been negative although patient continues to be symptomatic. Currently awaiting a urinalysis with culture and will add Pyridium and also obtain labs of CBC CMP magnesium. Patient reports she has a follow-up with appointment with Dr. Dominguez in the outpatient setting next week and instructed the patient to keep this appointment and follow-up with him regarding these continued symptoms. Encouraged fluids and also made the patient aware if having any further complications or issues to make the nurses aware to contact us. Physical exam: Gen: This is a 33-year-old female who is awake, alert and oriented x 3, well- developed, thin built HEENT: Head is atraumatic, normocephalic. Pupils equal, round. Sclerae is anicteric. NECK: Supple. No JVD. No lymphadenopathy. No thyromegaly. LUNGS: Clear to auscultation. No wheezes or rhonchi. No intercostal retractions. HEART: Regular rate and rhythm. No murmur. ABDOMEN: Soft. Bowel sounds are present. No masses. No tenderness. EXTREMITIES: No pedal edema. No calf tenderness. NEUROLOGICAL: Patient is awake, alert and oriented x3. Cranial nerves 2 through 12 are grossly intact. Assessment: Pain and burning and frequency with urination, possible acute UTI although urinalysis has been negative History of anxiety/depression History of substance abuse Full code The impression and plan of care has been dictated by Jolanta River, Nurse Practitioner as directed. Dr. Michelle MD I have performed a history and examination and MDM of this patient, discussed the same with the dictator, and agree with the dictator's assessment and plan as written ,documented as a scribe. Based on total visit time, I have performed more than 50% of the visit.
[2024-05-17] MEDS: PHENAZOPYRIDINE 100 MG TAB PO SCH (16:20)
[2024-05-17 17:30] LABS: Basophils % (A) 1 %; Eosinophils # (A) 0.2 k/uL (0-0.7); Eosinophils % (A) 2 %; HCT 40.4 % (34.0-46.0); HGB 13.2 gm/dL (11.4-16.0); Lymphocytes # (A) 2.1 k/uL (1.0-4.8); Lymphocytes % (A) 29 %; MCH 31.3 pg (25.0-35.0); MCHC 32.6 g/dL (31.0-37.0); MCV 96.1 fL (80.0-100.0); Mean Platelet Volume 8.4; Monocytes # (A) 0.5 k/uL (0-1.0); Monocytes % (A) 7 %; Neutrophils # (A) 4.2 k/uL (1.3-7.7); Neutrophils % (A) 59 %; Platelet Count 285 k/uL (150-450); RDW 12.5 % (11.5-15.5); WBC 7.1 k/uL (3.8-10.6)
[2024-05-17 17:55] LABS: ALT 25 U/L (4-34); AST 37 U/L (14-36); African American GFR (CKD) >90 (>60 ml/min/1.73 sqM); Albumin 4.5 g/dL (3.5-5.0); Alkaline Phosphatase 64 U/L (38-126); Anion Gap 8 mmol/L; Blood Urea Nitrogen 14 mg/dL (7-17); Calcium 9.5 mg/dL (8.4-10.2); Carbon Dioxide 28 mmol/L (22-30); Chloride 100 mmol/L (98-107); Glucose 83 mg/dL (74-99); Magnesium 2.2 mg/dL (1.6-2.3); Non-African American GFR(CKD) >90 (>60 ml/min/1.73 sqM); Potassium 4.6 mmol/L (3.5-5.1); Sodium 136 mmol/L (137-145); Total Bilirubin 0.4 mg/dL (0.2-1.3); Total Protein 7.3 g/dL (6.3-8.2)
[2024-05-18 10:12] LABS: Appearance,Urine Clear (Clear); Bilirubin,Urine Negative (Negative); Blood,Urine Negative (Negative); Color,Urine Yellow; Glucose,Urine (UA) Negative (Negative); Ketones,Urine Negative (Negative); Leukocyte Esterase,Urine Negative (Negative); Nitrite,Urine Negative (Negative); Protein,Urine Negative (Negative); Specific Gravity,Urine 1.003 (1.001-1.035); Urobilinogen,Urine <2.0 mg/dL (<2.0)
--- NOTE | 2024-05-18 12:25 | P.PN ---
Progress Note - Text Progress Note Date: 05/18/24 Interval History: Patient was seen after she completed group and was agreeable to meet in the of felix. He shared that her mood seems to be stable and she slept "great" last night. She notes that the Geodon seems to be helpful in stabilizing her mood and for her to function in the way that she wants to. He has been feeling a little anxious in light of the potential legal situation that is unfolding but she has been trying to use strategies outside of medication to cope with this. She has been coloring and walking trying to eat and drink lots of fluids which all seem to help her feel better. She has not yet tried taking the Seroquel as needed but notes that she will try if she feels the need to do so today. She endorses ongoing worry which she describes as "paranoia" about potential to return to mental health court and how this may affect her record, however she feels that the resolution will ultimately be okay she understands she has a go through the process. She has been taking trazodone at night which helps decrease her night terrors. She did have concerns that Geodon may be impacting her white blood cell count. She shared her plan to return to her grandmother's house while waiting for a bed at [facility]. At this time patient denies any suicidal or homicidal ideations, intent or plan. Patient denies any auditory, visual hallucinations and denies any paranoia or delusions. Patient denies any side effects from the medications and has been compliant with meds. Mental Status Exam: General Appearance: Patient appears to be stated age is alert, directable, and cooperative. Appropriate grooming. Behavior: Patient is calmly seated without any agitated behavior. Speech: Patient's speech is fluent and nonpressured. Mood/Affect: Mood is "stable", affect is congruent and calm, generally appears euthymic. Suicidality/Homicidality: Patient denies having any suicidal or homicidal ideation intent or plan. Perceptions: Patient denies any visual hallucinations and denies any auditory hallucinations Though content/process: There is no evidence of any delusional thought content and thought process is linear and goal-directed. Memory and concentration: AOX3, grossly intact for the purposes of this session Judgment and insight: Improving mildly Assessment Xiomara Ponce is a 33 year old woman with a history of psychosis and substance abuse who has been stabilizing but experienced increase in agitation when she was briefly trialed off ziprasidone. She has insight about this medication's efficacy in maintaining mood stability and helping her feel like herself. Overall she feels like her medication regimen is at an ideal place and she is starting to notice the benefits. We reviewed her most recent CBC's and shared that her white blood cell count has been in the normal range. It is unlikely for Kevin to cause issues with white blood cell count. Provided some reassurance that her labs are stable and normal. She is thinking about discharge; she has plans to return to her grandmother's house while awaiting a bed at [facility]. Plan: -Patient continues to meet criteria for inpatient psychiatric admission for symptom stabilization and safety. Patient has not signed adult voluntary form and medication consent and was placed in patient's chart. -Medications: - Continue ziprasidone 80 mg at bedtime - Continue quetiapine 250 mg at bedtime; will make 25 mg BID available PRN for anxiety/agitation, ideally in lieu of Ativan - Continue sertraline 50 mg daily - Continue Trazodone 50 mg at bedtime PRN insomnia - Has colace and senna PRN for constipation - Will repeat UA given concern for ongoing urinary symptoms -When necessary Ativan and Haldol for agitation/aggression. -NRT - Will decrease to 7mg/24hr patch per patient request -SW on board for discharge planning. Encouraged the patient to participate in milieu. Patient would like to return to her grandmother's house while awaiting bed at [facility]. Approaching readiness for discharge.
[2024-05-18] MEDS: QUEtiapine 25 MG TAB PO PRN (14:06)
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
[2024-05-19] MEDS: ZIPRASIDONE 40 MG CAP PO SCH (12:33)
[2024-05-19] MEDS: busPIRone HCl 5 MG TAB PO SCH (12:33)
--- NOTE | 2024-05-20 11:09 | P.PN ---
Subjective Progress Note Date: 05/20/24 Patient Name: Xiomara Ponce Date of : 89 Patient Status: Inpatient Attending Provider: Roe Pozo Date: 05/20/24 Initialization Date: 05/19/24 08:45 Subjective data: Patient was seen in the hallway and was agreeable to talk to this telegraphic typewriter repairer Patient reports that she is doing better emotionally She states that she is having some difficulty with urination and has been started on Pyridium She states that she is also facing some assault charges after being aggressive towards one of the nurses She states that she has a bipolar disorder history and that she is making progress She states that she is taking her medications as prescribed She states that she is alright today. She is attending groups, and being active on the unit. At this time patient denies any suicidal or homicidal ideations, intent or plan Patient denies any auditory, visual hallucinations and denies any paranoia or delusions. Patient denies any side effects from the medications and has been compliant with meds. Mental Status Exam: Is unchanged General Appearance: Patient appears to be stated age is alert, directable, and cooperative. Appropriate grooming. Behavior: Patient is calmly seated without any agitated behavior. Speech: Patient's speech is fluent and nonpressured. Mood/Affect: Mood is "all right", affect is congruent and calm Suicidality/Homicidality: Patient denies having any suicidal or homicidal ideation intent or plan. Perceptions: Patient denies any visual hallucinations and denies any auditory hallucinations Though content/process: There is no evidence of any delusional thought content and thought process is linear and goal-directed. Memory and concentration: AOX3, grossly intact for the purposes of this session. Judgment and insight: Improving mildly Assessment: mood disorder unspecified Rule out bipolar disorder vs schizoaffective disorder, bipolar type nicotine dependance cannabis use disorder Plan: Agree with the current treatment plan -Patient continues to meet criteria for inpatient psychiatric admission for symptom stabilization and safety. Patient has not signed adult voluntary form and medication consent and was placed in patient's chart. -Medications: - ziprasidone 40mg bid for psychosis - Continue quetiapine 250 mg at bedtime; will make 25 mg BID available PRN for anxiety/agitation, ideally in lieu of Ativan - Continue sertraline 50 mg daily - Continue Trazodone 50 mg at bedtime PRN insomnia - Has colace and senna PRN for constipation - add buspar 15 mg bid for anxiety. -When necessary Ativan and Haldol for agitation/aggression. -NRT - 7mg/24hr patch per patient request -SW on board for discharge planning. Encouraged the patient to participate in milieu. Patient would like to return to her grandmother's house while awaiting bed at [facility]. Approaching readiness for discharge. Possible discharge early next week, if patient continues to improve. Ash Smith MD Objective - Vital Signs Vital signs: Vital Signs Temp 97.9 F 05/20/24 06:00 Pulse 79 05/20/24 06:00 Resp 18 05/20/24 06:00 BP 98/66 05/20/24 06:00 Pulse Ox 98 05/20/24 06:00 FiO2 - Labs CBC & Chem 7: 05/17/24 17:02 05/17/24 17:02
--- NOTE | 2024-05-21 09:14 | P.PN ---
Subjective Progress Note Date: 05/21/24 Patient Name: Xiomara Ponce Date of : 89 Patient Status: Inpatient Attending Provider: Roe Pozo Date: 05/21/24 Initialization Date: 05/19/24 08:45 Subjective data: Patient was seen in her room and was agreeable to talk to this keno writer/runner Patient reports that she is doing better emotionally She states that she is still having some difficulty with urination and has been started on Pyridium She states that she is to get UTIs quite often when she was sexually active She is attending groups, and being active on the unit. At this time patient denies any suicidal or homicidal ideations, intent or plan Patient denies any auditory, visual hallucinations and denies any paranoia or delusions. Patient denies any side effects from the medications and has been compliant with meds. Mental Status Exam: Is unchanged General Appearance: Patient appears to be stated age is alert, directable, and cooperative. Appropriate grooming. Behavior: Patient is calmly seated without any agitated behavior. Speech: Patient's speech is fluent and nonpressured. Mood/Affect: Mood is "all right", affect is congruent and calm Suicidality/Homicidality: Patient denies having any suicidal or homicidal ideation intent or plan. Perceptions: Patient denies any visual hallucinations and denies any auditory hallucinations Though content/process: There is no evidence of any delusional thought content and thought process is linear and goal-directed. Memory and concentration: AOX3, grossly intact for the purposes of this session. Judgment and insight: Improving mildly Assessment: mood disorder unspecified Rule out bipolar disorder vs schizoaffective disorder, bipolar type nicotine dependance cannabis use disorder Plan: Agree with the current treatment plan -Patient continues to meet criteria for inpatient psychiatric admission for symptom stabilization and safety. Patient has not signed adult voluntary form and medication consent and was placed in patient's chart. -Medications: - ziprasidone 40mg bid for psychosis - Continue quetiapine 250 mg at bedtime; will make 25 mg BID available PRN for anxiety/agitation, ideally in lieu of Ativan - Continue sertraline 50 mg daily - Continue Trazodone 50 mg at bedtime PRN insomnia - Has colace and senna PRN for constipation - add buspar 15 mg bid for anxiety. -When necessary Ativan and Haldol for agitation/aggression. -NRT - 7mg/24hr patch per patient request -SW on board for discharge planning. Encouraged the patient to participate in milieu. Patient would like to return to her grandmother's house while awaiting bed at [facility]. Approaching readiness for discharge. Possible discharge early next week, if patient continues to improve. Reviewed patient's urinalysis and does not seem to show any infection Ash Smith MD Objective - Vital Signs Vital signs: Vital Signs Temp 97.9 F 05/20/24 06:00 Pulse 79 05/20/24 06:00 Resp 18 05/20/24 06:00 BP 98/66 05/20/24 06:00 Pulse Ox 98 05/20/24 06:00 FiO2 - Labs CBC & Chem 7: 05/17/24 17:02 05/17/24 17:02
--- NOTE | 2024-05-22 11:47 | P.DS ---
Providers Date of admission: 05/01/24 21:16 Expected date of discharge: 05/22/24 Attending physician: Roe Pozo MD Consults: 05/01/24 21:44 Consult Physician Routine Consulting Provider: Tejas Dominguez Consult Reason/Comments: H&P and medical Do you want consulting provider notified?: Yes, Notify in am Primary care physician: Tejas Dominguez - Discharge Diagnosis(es) (1) Bipolar disorder current episode depressed Current Visit: Yes Status: Acute Priority: High (2) Nicotine dependence Current Visit: Yes Status: Acute Priority: Low (3) Cannabis use disorder Current Visit: Yes Status: Acute Priority: Medium Hospital Course: Admission HPI: Admission note was completed by Dr Reese "The patient noted that she was brought to the hospital by her uncle because her grandmother told him that she was not acting right. She noticed that the patient was acting irritable, agitated, and suicidal. The patient stated that she told her grandmother and mother that she would pour gasoline and burn herself in order to punish them because they were punishing her by asking her to eat certain foods, put on lots of weight and get a boob job. The patient noted that she was in rehab for Adderall addiction. She was discharged on April 13. She was taking Lexapro but her grandmother wanted her to stop it and go on certain diet. The patient noted that all this makes her very frustrated and angry. She deals with this by diverting her mind by exercising, yoga, read and attending AA/NA meetings. The patient noted that she is in arranged marriage but she did not know about it but her fianc knew. He wants er to get a boob job. He is also sleeping with another girl She feels revengeful and wanted to hurt her but does not feel like that anymore. The patient noted that she does not feel good after getting angry. She wants to address it. The patient noted that she was first admitted in 2022 to this hospital. She noted that she first sought psychiatric treatment at age 10 for Depression because her paternal grandmother and maternal uncle . She went for counseling. The patient was given Adderall and Vyvanse in 10th grade. She was also prescribed Klonopin but she did not take it, as per patient. In 12th grade she was prescribed SSRIs, as per patient. She was given Wellbutrin, Zolof t, Lexapro, Effexor, Remeron, Risperdal, Zyprexa, Trazodone, Concerta. She has been treated off on since then. Her first psychiatric admission was in 2022. She has no h/o suicidal ideations or behaviors in the past. She noted being in substance abuse rehab twice. The patient noted that she has been given diagnoses of Depression, Bipolar disorder, ADHD" Hospital course: Upon admission to the unit patient was directable and agreeable to commence treatment and signed adult voluntary form. Patient got along well with other patients on the unit and followed unit protocol. Patient was compliant with the medications and denied any side effects throughout hospital course. Patient was started on Geodon increased to dose of 40 mg twice daily for psychosis/mood stabilization, Seroquel increased to dose of 300 mg nightly +25 mg twice daily as needed for anxiety/agitation. Zoloft 50 mg daily for mood/anxiety. Trazodone 50 mg nightly as needed for insomnia/mood. Patient spoke of her stressors and engaged in therapy both group and individual. Patient was also seen by medical team for history and physical exam. Throughout the course of the hospitalization patient gradually improved with regards to mood lability, anxiety, sleep and returned back to their baseline level of functioning. On the day of discharge patient denied any suicidal or homicidal ideations intent or plan denied any auditory or visual hallucinations. Patient endorsed wanting to live for her health and family. The patient denied any access to guns or weapons. Patient denied any paranoia and did not endorse any delusions. Patient does have a significant history of substance abuse and was counseled on abstaining from all substances including alcohol and marijuana. Patient elected to do outpatient substance use treatment program through [facility]. Patient was also counseled on the medications and need for regular compliance and was encouraged to follow-up with their outpatient appointment for mental health and also for primary care. Prior to discharge a family meeting will be arranged by child protective services social worker to answer any questions and ensure safety upon discharge. She will be discharged back home today with follow-up tomorrow at [facility]. Mental status exam: General Appearance: Patient appears to be thin, stated age is alert, pleasant, and cooperative. Patient is in no acute distress and has improved hygiene and grooming Behavior: Patient is calmly seated without any agitated behavior. Speech: Patient's speech is fluent and nonpressured. Mood/Affect: Patient reports their mood is "better", affect is congruent and euthymic. Suicidality/Homicidality: Patient denies having any suicidal or homicidal ideation intent or plan. Perceptions: Patient denies any auditory or visual hallucinations. Though content/process: There is no evidence of any delusional thought content and thought process is linear and goal-directed. Memory and concentration: AOX3, grossly intact for the purposes of this session. Can spell "WORLD" backwards correctly. Judgment and insight: Chronically poor, however has improved with guarded prognosis Impression: mood disorder unspecified bipolar disorder nicotine dependance cannabis use disorder Plan: -Continue with discharge today as patient has improved and stabilized psychiatrically and is not currently an imminent threat to herself and/or others. Patient will remain at chronically elevated risk for harm to self and/or others due to her impulsivity and chronic/severe mental illness -Continue medications: Geodon 40 mg twice daily for psychosis/mood stabilization, Seroquel 300 mg nightly for mood stabilization/psychosis/sleep, 25 mg twice daily as needed for anxiety/agitation. Zoloft 50 mg daily for mood/anxiety, trazodone 50 mg nightly as needed for insomnia/mood. BuSpar 15 mg twice daily for anxiety. -Patient was counseled on the need for medication compliance and appropriate follow-up at mental health and also primary care for medical issues. Patient v erbalized understanding and agreed. -Social work to arrange for and conduct family meeting to ensure safety upon discharge and answer any questions/concerns. Social work also to arrange for patients follow up appointments with [facility] for psychiatric care along with follow up with primary care provider. -Patient counseled on abstaining from recreational drugs and marijuana and alcohol. Was informed/educated on the adverse effects on their physical and mental health. Patient verbally agreed and understood. -Patient was instructed to return to the hospital or seek immediate medical care if their psychiatric or medical symptoms do worsen or reoccur. ] Allergies Allergy/AdvReac Type Severity Reaction Status Date / Time No Known Allergies Allergy Verified 05/01/24 22:26 Laboratory Results WBC 7.1 k/uL (3.8-10.6) 05/17/24 17:02 RBC 4.20 m/uL (3.80-5.40) 05/17/24 17:02 Hgb 13.2 gm/dL (11.4-16.0) 05/17/24 17:02 Hct 40.4 % (34.0-46.0) 05/17/24 17:02 MCV 96.1 fL (80.0-100.0) 05/17/24 17:02 MCH 31.3 pg (25.0-35.0) 05/17/24 17:02 MCHC 32.6 g/dL (31.0-37.0) 05/17/24 17:02 RDW 12.5 % (11.5-15.5) 05/17/24 17:02 Plt Count 285 k/uL (150-450) 05/17/24 17:02 MPV 8.4 05/17/24 17:02 Neutrophils % 59 % 05/17/24 17:02 Lymphocytes % 29 % 05/17/24 17:02 Monocytes % 7 % 05/17/24 17:02 Eosinophils % 2 % 05/17/24 17:02 Basophils % 1 % 05/17/24 17:02 Neutrophils # 4.2 k/uL (1.3-7.7) 05/17/24 17:02 Lymphocytes # 2.1 k/uL (1.0-4.8) 05/17/24 17:02 Monocytes # 0.5 k/uL (0-1.0) 05/17/24 17:02 Eosinophils # 0.2 k/uL (0-0.7) 05/17/24 17:02 Basophils # 0.0 k/uL (0-0.2) 05/17/24 17:02 Sodium 136 mmol/L (137-145) L 05/17/24 17:02 Potassium 4.6 mmol/L (3.5-5.1) 05/17/24 17:02 Chloride 100 mmol/L (98-107) 05/17/24 17:02 Carbon Dioxide 28 mmol/L (22-30) 05/17/24 17:02 Anion Gap 8 mmol/L 05/17/24 17:02 BUN 14 mg/dL (7-17) 05/17/24 17:02 Creatinine 0.73 mg/dL (0.52-1.04) 05/17/24 17:02 Est GFR (CKD-EPI)AfAm >90 (>60 ml/min/1.73 sqM) 05/17/24 17:02 Est GFR (CKD-EPI)NonAf >90 (>60 ml/min/1.73 sqM) 05/17/24 17:02 Glucose 83 mg/dL (74-99) 05/17/24 17:[address] Glu mg/dL 108 mg/dL 05/03/24 07:54 Hemoglobin A1c 5.4 % (<=6.0) 05/03/24 07:54 Calcium 9.5 mg/dL (8.4-10.2) 05/17/24 17:02 Magnesium 2.2 mg/dL (1.6-2.3) 05/17/24 17:02 Total Bilirubin 0.4 mg/dL (0.2-1.3) 05/17/24 17:02 AST 37 U/L (14-36) H 05/17/24 17:02 ALT 25 U/L (4-34) 05/17/24 17:02 Alkaline Phosphatase 64 U/L (38-126) 05/17/24 17:02 Total Protein 7.3 g/dL (6.3-8.2) 05/17/24 17:02 Albumin 4.5 g/dL (3.5-5.0) 05/17/24 17:02 Triglycerides 64.30 mg/dL (0.00-149.00) 05/03/24 07:54 Cholesterol 183.00 mg/dL (0.00-200.00) 05/03/24 07:54 LDL Cholesterol, Calc 97.7 mg/dL (0.0-131.0) 05/03/24 07:54 VLDL Cholesterol, Calc 12.86 mg/dL (5.00-40.00) 05/03/24 07:54 HDL Cholesterol 72.40 mg/dL (40.00-60.00) H 05/03/24 07:54 Cholesterol/HDL Ratio 2.53 Ratio 05/03/24 07:54 TSH 1.540 mIU/L (0.465-4.680) 05/03/24 07:54 Urine Color Yellow 05/18/24 09:31 Urine Appearance Clear (Clear) 05/18/24 09:31 Urine pH 7.0 (5.0-8.0) 05/18/24 09:31 Ur Specific [place] 1.003 (1.001-1.035) 05/18/24 09:31 Urine Protein Negative (Negative) 05/18/24 09: Urine Glucose (UA) Negative (Negative) 05/18/24 09:31 Urine Ketones Negative (Negative) 05/18/24 09: Urine Blood Negative (Negative) 05/18/24 09: Urine Nitrite Negative (Negative) 05/18/24: Urine Bilirubin Negative (Negative) 05/18/24 09: Urine Urobilinogen <2.0 mg/dL (<2.0) 05/18/24 09:31 Ur Leukocyte Esterase Negative (Negative) 05/18/24 09: Urine HCG, Qual Not Detected (Not Detectd) 05/01/24 18:40 Urine Opiates Screen Not Detected (NotDetected) 05/01/24 18:40 Ur Oxycodone Screen Not Detected (NotDetected) 05/01/24 18:40 Urine Methadone Screen Not Detected (NotDetected) 05/01/24 18:40 Ur Barbiturates Screen Not Detected (NotDetected) 05/01/24 18:40 U Tricyclic Antidepress Not Detected (NotDetected) 05/01/24 18:40 Ur Phencyclidine Scrn Not Detected (NotDetected) 05/01/24 18:40 Ur Amphetamines Screen Not Detected (NotDetected) 05/01/24 18:40 U Methamphetamines Scrn Not Detected (NotDetected) 05/01/24 18:40 U Benzodiazepines Scrn Not Detected (NotDetected) 05/01/24 18:40 Urine Cocaine Screen Not Detected (NotDetected) 05/01/24 18:40 U Marijuana (THC) Screen Detected (NotDetected) H 05/01/24 18:40 SARS-CoV-2 (PCR) Not Detected (Not Detectd) 05/01/24 20:15 Vital Signs Temp 97.5 F L 05/22/24 06:51 Pulse 95 05/22/24 06:51 Resp 14 05/22/24 06:51 BP 100/65 05/22/24 06:51 Pulse Ox 98 05/22/24 06:51 FiO2 Intake & Output 05/21/24 05/22/24 05/22/24 18:59 06:59 18:59 Weight 68 kg Patient Condition at Discharge: Stable Plan - Discharge Summary Discharge Rx Participant: Yes New Discharge Prescriptions: New busPIRone HCL [Buspar] 15 mg PO BID 30 Days #60 tablet Ziprasidone [Geodon] 40 mg PO BID 30 Days #60 cap Phenazopyridine [Pyridium] 100 mg PO TID 30 Days #90 tab Sennosides [Senokot] 8.6 mg PO DAILY PRN 30 Days #30 tab PRN Reason: Constipation traZODone HCL [Desyrel] 50 mg PO HS PRN 30 Days #30 tab PRN Reason: Insomnia Nicotine 7Mg/24Hr Patch [Habitrol] 1 patch TRANSDERM DAILY 14 Days #14 patch QUEtiapine FUMARATE [SEROquel] 300 mg PO HS 30 Days #30 tablet QUEtiapine [SEROquel] 25 mg PO BID PRN 30 Days #60 tab PRN Reason: Agitation Or Acute Anxiety Sertraline [Zoloft] 50 mg PO DAILY 30 Days #30 tab Discharge Medication List Nicotine 7Mg/24Hr Patch [Habitrol] 1 patch TRANSDERM DAILY 14 Days #14 patch 05/22/24 [Rx] Phenazopyridine [Pyridium] 100 mg PO TID 30 Days #90 tab 05/22/24 [Rx] QUEtiapine FUMARATE [SEROquel] 300 mg PO HS 30 Days #30 tablet 05/22/24 [Rx] QUEtiapine [SEROquel] 25 mg PO BID PRN 30 Days #60 tab 05/22/24 [Rx] Sennosides [Senokot] 8.6 mg PO DAILY PRN 30 Days #30 tab 05/22/24 [Rx] Sertraline [Zoloft] 50 mg PO DAILY 30 Days #30 tab 05/22/24 [Rx] Ziprasidone [Geodon] 40 mg PO BID 30 Days #60 cap 05/22/24 [Rx] busPIRone HCL [Buspar] 15 mg PO BID 30 Days #60 tablet 05/22/24 [Rx] traZODone HCL [Desyrel] 50 mg PO HS PRN 30 Days #30 tab 05/22/24 [Rx] Follow up Appointment(s)/Referral(s): [facility] [Outside] - 05/23/24 2:00 pm (05/23/2024 2:00PM - 3:00PM MARJORIE VENTURA 05/31/2024 3:00PM - 4:00PM DELICIA MULLINS ) Tejas Dominguez, [Primary Care Provider] - 1-2 days Activity/Diet/Wound Care/Special Instructions: Avoid the use of street drugs and alcohol. Take all medications as prescribed. When you are in need of refills on your medications, please contact your medical provider and/or outpatient psychiatrist/provider to have this done. Please go to your scheduled outpatient appointment for aftercare treatment. If symptoms return or become worse, call the crisis line at and/or go to the nearest emergency room for evaluation. National Suicide Hotline 988 Discharge Disposition: HOME SELF-CARE
[2024-05-22] MEDS: DOCUSATE 100 MG CAP PO PRN (12:27)
[2024-05-22 15:15] VITALS: BP 100/65; TEMP 97.5
[2024-05-22 15:16] VITALS: PULSE 95; RESP 14
== END 2024-05-22 12:58 | disposition home or self-care (01) | DRG 885 ==
LOC: EC 16:40 → 3MHU 21:16
PROVIDERS: ADMIT Psychiatry & Neurology Psychiatry; ATTEND Psychiatry & Neurology Psychiatry
DX: F31.9 Bipolar disorder, unspecified (principal); R45.851 Suicidal ideations; F12.10 Cannabis abuse, uncomplicated; F16.10 Hallucinogen abuse, uncomplicated; F17.200 Nicotine dependence, unspecified, uncomplicated; F25.1 Schizoaffective disorder, depressive type; F15.11 Other stimulant abuse, in remission; F43.10 Post-traumatic stress disorder, unspecified; F90.9 Attention-deficit hyperactivity disorder, unspecified type; K59.00 Constipation, unspecified; Z78.1 Physical restraint status; Z71.51 Drug abuse counseling and surveillance of drug abuser; Z79.899 Other long term (current) drug therapy; Z71.89 Other specified counseling; X83.8XXA Intentional self-harm by other specified means, initial encounter; B19.20 Unspecified viral hepatitis C without hepatic coma
CPT/HCPCS: 80053; 80061; 80306; 81003; 81025; 82075; 83036; 83735; 84443; 85025; 87635; 93005; 99285

== ENCOUNTER 2024-07-09 13:18 | Emergency (ER) | payer OTHER ==
[2024-07-09 13:26] VITALS: RESP 16
--- NOTE | 2024-07-09 13:47 | ED ---
Psych HPI - General Chief Complaint: Psychiatric Symptoms Stated Complaint: mental health/suicidal thoughts Time Seen by Provider: 07/09/24 13:45 Source: patient, RN notes reviewed Mode of arrival: ambulatory - History of Present Illness Initial Comments: 33-year-old female with history of major depressive disorder, generalized anxiety disorder, schizoaffective disorder, and bipolar disorder presenting with suicidal ideation. States she recently has been tapering down her Zoloft due to side effects of the medication. States since she has tapered the Zoloft, she has been having an increase in suicidal ideations. Denies plan. States she feels as though her medications are causing her to be unstable. She follows regularly with [facility]. No medical complaints. - Related Data Previous Rx's Medication Instructions Recorded Nicotine 7Mg/24Hr Patch [Habitrol] 1 patch TRANSDERM DAILY 14 Days 05/22/24 #14 patch Phenazopyridine [Pyridium] 100 mg PO TID 30 Days #90 tab 05/22/24 QUEtiapine FUMARATE [SEROquel] 300 mg PO HS 30 Days #30 tablet 05/22/24 QUEtiapine [SEROquel] 25 mg PO BID PRN 30 Days #60 tab 05/22/24 Sennosides [Senokot] 8.6 mg PO DAILY PRN 30 Days #30 tab 05/22/24 Sertraline [Zoloft] 50 mg PO DAILY 30 Days #30 tab 05/22/24 Ziprasidone [Geodon] 40 mg PO BID 30 Days #60 cap 05/22/24 busPIRone HCL [Buspar] 15 mg PO BID 30 Days #60 tablet 05/22/24 traZODone HCL [Desyrel] 50 mg PO HS PRN 30 Days #30 tab 05/22/24 hydrOXYzine pamoate [Vistaril] 25 mg PO TID PRN 4 Days #12 cap 07/09/24 Allergies Allergy/AdvReac Type Severity Reaction Status Date / Time No Known Allergies Allergy Verified 07/09/24 13:25 Review of Systems ROS Statement: Those systems with pertinent positive or pertinent negative responses have been documented in the HPI. ROS Other: All systems not noted in ROS Statement are negative. Past Medical History Past Medical History: No Reported History History of Any Multi-Drug Resistant Organisms: None Reported Past Surgical History: No Surgical Hx Reported Past Psychological History: Anxiety, Bipolar, Depression, Schizophrenia Smoking Status: Former smoker Past Alcohol Use History: Occasional Past Drug Use History: None Reported, Marijuana General Exam Limitations: no limitations General appearance: alert, in no apparent distress Head exam: Present: atraumatic, normocephalic, normal inspection Eye exam: Present: normal appearance, PERRL, EOMI. Absent: scleral icterus, conjunctival injection, periorbital swelling Respiratory exam: Present: normal lung sounds bilaterally. Absent: respiratory distress, wheezes, rales, rhonchi, stridor Cardiovascular Exam: Present: regular rate, normal rhythm, normal heart sounds. Absent: systolic murmur, diastolic murmur, rubs, gallop, clicks Neurological exam: Present: alert, oriented X3 Psychiatric exam: Present: normal mood, flat affect Skin exam: Present: warm, dry, intact, normal color. Absent: rash Course Vital Signs 07/09/24 13:22 Temperature 97.5 F L Pulse Rate 89 Respiratory 16 Rate Blood Pressure 112/72 O2 Sat by Pulse 99 Oximetry Medical Decision Making - Medical Decision Making Was pt. sent in by a medical professional or institution (, PA, RENAL TECHNICIAN, urgent care, hospital, or detention...) When possible be specific @ -No Did you speak to anyone other than the patient for history (EMS, parent, family, police, friend...)? What history was obtained from this source @ -No Did you review nursing and triage notes (agree or disagree)? Why? @ -I reviewed and agree with nursing and triage notes Were old charts reviewed (outside hosp., previous admission, EMS record, old EKG, old radiological studies, urgent care reports/EKG's, detention records)? Report findings @ -No old charts were reviewed Differential Diagnosis (chest pain, altered mental status, abdominal pain women, abdominal pain men, vaginal bleeding, weakness, fever, dyspnea, syncope, headache, dizziness, GI bleed, back pain, seizure, CVA, palpatations, mental health, musculoskeletal)? @ -Differential Mental Health Depression, anxiety, bipolar, psychosis, schizophrenia, borderline personality, situational depression, adjustment disorder, behavioral disorder, brain tumor, malingering, substance abuse, encephalopathy, medication reaction, dementia, hypothyroidism, degenerative neurologic disorder, lupus.... This is not meant to be all-inclusive list EKG interpreted by me (3pts min.). @ -None X-rays interpreted by me (1pt min.). @ -None done CT interpreted by me (1pt min.). @ -None done U/S interpreted by me (1pt. min.). @ -None done What testing was considered but not performed or refused? (CT, X-rays, U/S, labs)? Why? @ -None What meds were considered but not given or refused? Why? @ -None Did you discuss the management of the patient with other professionals (professionals i.e. , PA, RENAL TECHNICIAN, lab, RT, psych nurse, medical social consultant, lawyer probate, teacher, staff air tactical officer, manager quantitative)? Give summary @ -I spoke with Ruth from EPS who recommends discharge with safety plan at this time. Patient will follow-up outpatient with [facility]. Requesting hydroxyzine for anxiety. Was smoking cessation discussed for >3mins.? @ -No Was critical care preformed (if so, how long)? @ -No Were there social determinants of health that impacted care today? How? (Homelessness, low income, unemployed, alcoholism, drug addiction, transportation, low edu. Level, literacy, decrease access to med. care, residential, rehab)? @ -No Was there de-escalation of care discussed even if they declined (Discuss DNR or withdrawal of care, Hospice)? DNR status @ -No What co-morbidities impacted this encounter? (DM, HTN, Smoking, COPD, CAD, Cancer, CVA, ARF, Chemo, Hep., AIDS, mental health diagnosis, sleep apnea, morbid obesity)? @ -Major depressive disorder, generalized anxiety disorder Was patient admitted / discharged? Hospital course, mention meds given and route, prescriptions, significant lab abnormalities, going to OR and other pertinent info. @ -Patient was discharged. Patient was seen and evaluated for suicidal ideations increasing over the last few days. Patient has a long history of major depressive disorder and generalized anxiety disorder. Patient has been tapering herself off of Zoloft which she believes is contributing to her symptoms. No medical complaints at this time. Patient was seen and evaluated by [facility] who recommends discharge with safety plan at this time. Patient will follow-up outpatient with [facility]. Requesting hydroxyzine for anxiety, 4 days of hydroxyzine sent to pharmacy for anxiety as needed. Patient is agreeable to plan. Patient discharged with safety plan. Case was discussed with my ED attending Dr. Jamison. Undiagnosed new problem with uncertain prognosis? @ -No Drug Therapy requiring intensive monitoring for toxicity (Heparin, Nitro, Insulin, Cardizem)? @ -No Were any procedures done? @ -No Diagnosis/symptom? @ -Major depressive disorder, generalized anxiety disorder Acute, or Chronic, or Acute on Chronic? @ -Acute on chronic Uncomplicated (without systemic symptoms) or Complicated (systemic symptoms)? @ -Uncomplicated Side effects of treatment? @ -No Exacerbation, Progression, or Severe Exacerbation? @ -No Poses a threat to life or bodily function? How? (Chest pain, [place], [place], pneumonia, PE, COPD, DKA, ARF, appy, cholecystitis, CVA, Diverticulitis, Homicidal, Suicidal, threat to staff... and all critical care pts) @ -Unlikely at this time - Lab Data Lab Results 07/09/24 Range/Units 14:21 Urine Opiates Screen Not Detected (NotDetected) Ur Oxycodone Screen Detected H (NotDetected) Urine Methadone Screen Not Detected (NotDetected) Ur Barbiturates Screen Not Detected (NotDetected) U Tricyclic Antidepress Detected H (NotDetected) Ur Phencyclidine Scrn Not Detected (NotDetected) Ur Amphetamines Screen Not Detected (NotDetected) U Methamphetamines Scrn Not Detected (NotDetected) U Benzodiazepines Scrn Not Detected (NotDetected) Urine Cocaine Screen Not Detected (NotDetected) U Marijuana (THC) Screen Not Detected (NotDetected) Disposition Clinical Impression: Major depressive disorder, Generalized anxiety disorder Disposition: HOME SELF-CARE Condition: Stable Additional Instructions: Take hydroxyzine as needed for anxiety. Follow-up with [facility] as discussed. Please return to the Emergency Department if symptoms worsen or any other concerns. Prescriptions: hydrOXYzine pamoate [Vistaril] 25 mg PO TID PRN 4 Days #12 cap PRN Reason: Anxiety Is patient prescribed a controlled substance at d/c from ED?: No Referrals: Ki Castillo MD [Primary Care Provider] - 1-2 days Time of Disposition: 15:12
[2024-07-09 14:56] LABS: Amphetamine Screen,Urine Not Detected (NotDetected); Benzodiazepines Screen,Urine Not Detected (NotDetected); Cocaine Screen,Urine Not Detected (NotDetected); Opiate Screen,Urine Not Detected (NotDetected); Phencyclidine Screen,Urine Not Detected (NotDetected); Urn Cannabinoid Scrn Not Detected (NotDetected)
[2024-07-09 14:57] LABS: Barbiturate Screen,Urine Not Detected (NotDetected); Methadone Screen, Urine Not Detected (NotDetected); Oxycodone Screen, Urine Detected (NotDetected); Tricyclic Antidepressant,Urine Detected (NotDetected)
[2024-07-09 15:45] VITALS: BP 112/71; PULSE 90; TEMP 97.7
== END 2024-07-09 15:45 | disposition home or self-care (01) ==
LOC: EC 13:18
DX: F41.1 Generalized anxiety disorder (principal); F32.9 Major depressive disorder, single episode, unspecified; R45.851 Suicidal ideations; Z87.891 Personal history of nicotine dependence
CPT/HCPCS: 80306; 82075; 99285

== ENCOUNTER 2024-07-14 11:01 | Emergency (ER) | payer OTHER ==
[2024-07-14 11:10] VITALS: RESP 18; TEMP 97
--- NOTE | 2024-07-14 14:58 | ED ---
Psych HPI - General Chief Complaint: Psychiatric Symptoms Stated Complaint: Mental health eval Time Seen by Provider: 07/14/24 11:13 Source: patient, family Mode of arrival: ambulatory - History of Present Illness Initial Comments: 33-year-old female presenting for mental health evaluation. Patient states that she has had some suicidal ideation. She has no plan to harm herself. States that she is trying to get into [facility] but they stated she needed medical clearance first. She recently took herself off her SSRI and now thinks that this med adjustment has been causing her issues. No homicidal ideation. No physical symptoms at this time. - Related Data Previous Rx's Medication Instructions Recorded Nicotine 7Mg/24Hr Patch [Habitrol] 1 patch TRANSDERM DAILY 14 Days 05/22/24 #14 patch Phenazopyridine [Pyridium] 100 mg PO TID 30 Days #90 tab 05/22/24 QUEtiapine FUMARATE [SEROquel] 300 mg PO HS 30 Days #30 tablet 05/22/24 QUEtiapine [SEROquel] 25 mg PO BID PRN 30 Days #60 tab 05/22/24 Sennosides [Senokot] 8.6 mg PO DAILY PRN 30 Days #30 tab 05/22/24 Sertraline [Zoloft] 50 mg PO DAILY 30 Days #30 tab 05/22/24 Ziprasidone [Geodon] 40 mg PO BID 30 Days #60 cap 05/22/24 busPIRone HCL [Buspar] 15 mg PO BID 30 Days #60 tablet 05/22/24 traZODone HCL [Desyrel] 50 mg PO HS PRN 30 Days #30 tab 05/22/24 hydrOXYzine pamoate [Vistaril] 25 mg PO TID PRN 4 Days #12 cap 07/09/24 Allergies Allergy/AdvReac Type Severity Reaction Status Date / Time No Known Allergies Allergy Verified 07/14/24 11:10 Review of Systems ROS Statement: Those systems with pertinent positive or pertinent negative responses have been documented in the HPI. ROS Other: All systems not noted in ROS Statement are negative. Past Medical History Past Medical History: No Reported History History of Any Multi-Drug Resistant Organisms: None Reported Past Surgical History: No Surgical Hx Reported Past Psychological History: Anxiety, Bipolar, Depression, Schizophrenia Smoking Status: Former smoker Past Alcohol Use History: Occasional Past Drug Use History: None Reported, Marijuana General Exam Limitations: no limitations General appearance: alert, in no apparent distress Head exam: Present: atraumatic, normocephalic Eye exam: Present: normal appearance, EOMI Neck exam: Present: normal inspection. Absent: meningismus Respiratory exam: Absent: respiratory distress Cardiovascular Exam: Present: regular rate Neurological exam: Present: alert, oriented X3 Psychiatric exam: Present: normal affect, normal mood Skin exam: Present: warm, dry Course Vital Signs 07/14/24 07/14/24 11:06 15:08 Temperature 97 F L Pulse Rate 74 75 Respiratory 18 18 Rate Blood Pressure 113/77 122/71 O2 Sat by Pulse 98 98 Oximetry Medical Decision Making - Medical Decision Making Was pt. sent in by a medical professional or institution (, PA, FOUNTAIN SERVER, urgent care, hospital, or usp...) When possible be specific @ -No Did you speak to anyone other than the patient for history (EMS, parent, family, police, friend...)? What history was obtained from this source @ -No Did you review nursing and triage notes (agree or disagree)? Why? @ -I reviewed and agree with nursing and triage notes Were old charts reviewed (outside hosp., previous admission, EMS record, old EKG, old radiological studies, urgent care reports/EKG's, usp records)? Report findings @ -No old charts were reviewed Differential Diagnosis (chest pain, altered mental status, abdominal pain women, abdominal pain men, vaginal bleeding, weakness, fever, dyspnea, syncope, headache, dizziness, GI bleed, back pain, seizure, CVA, palpatations, mental health, musculoskeletal)? @ -Differential Mental Health Depression, anxiety, bipolar, psychosis, schizophrenia, borderline personality, situational depression, adjustment disorder, behavioral disorder, brain tumor, malingering, substance abuse, encephalopathy, medication reaction, dementia, hypothyroidism, degenerative neurologic disorder, lupus.... This is not meant to be all-inclusive list EKG interpreted by me (3pts min.). @ -As above X-rays interpreted by me (1pt min.). @ -None done CT interpreted by me (1pt min.). @ -None done U/S interpreted by me (1pt. min.). @ -None done What testing was considered but not performed or refused? (CT, X-rays, U/S, labs)? Why? @ -None What meds were considered but not given or refused? Why? @ -None Did you discuss the management of the patient with other professionals (professionals i.e. , PA, FOUNTAIN SERVER, lab, RT, psych nurse, manager social work, corner bead operator, teacher, chief science officer, correctional case records supervisor)? Give summary @ -No Was smoking cessation discussed for >3mins.? @ -No Was critical care preformed (if so, how long)? @ -No Were there social determinants of health that impacted care today? How? (Homelessness, low income, unemployed, alcoholism, drug addiction, t ransportation, low edu. Level, literacy, decrease access to med. care, senior care, rehab)? @ -No Was there de-escalation of care discussed even if they declined (Discuss DNR or withdrawal of care, Hospice)? DNR status @ -No What co-morbidities impacted this encounter? (DM, HTN, Smoking, COPD, CAD, Cancer, CVA, ARF, Chemo, Hep., AIDS, mental health diagnosis, sleep apnea, morbid obesity)? @ -None Was patient admitted / discharged? Hospital course, mention meds given and route, prescriptions, significant lab abnormalities, going to OR and other pertinent info. @ -23-year-old female presenting for mental health evaluation. States that she has had some suicidal ideation. No plan. No homicidal ideation. History and physical exam are conducted. She is medically cleared. Evaluated by EPS who determined that the patient is safe for discharge home with safety plan. I discussed this case with my attending Dr. Sharp Undiagnosed new problem with uncertain prognosis? @ -No Drug Therapy requiring intensive monitoring for toxicity (Heparin, Nitro, Insulin, Cardizem)? @ -No Were any procedures done? @ -No Diagnosis/symptom? @ -Depression Acute, or Chronic, or Acute on Chronic? @ -Acute on chronic Uncomplicated (without systemic symptoms) or Complicated (systemic symptoms)? @ -Uncomplicated Side effects of treatment? @ -No Exacerbation, Progression, or Severe Exacerbation? @ -No - Lab Data Lab Results 07/14/24 Range/Units 11:28 SARS-CoV-2 (PCR) Not Detected (Not Detectd) Disposition Clinical Impression: Major depressive disorder Disposition: HOME SELF-CARE Condition: Fair Instructions (If sedation given, give patient instructions): Suicide Prevention (ED) Additional Instructions: Follow-up with PCP and [facility]. Report back to ER with any new or worsening symptoms. Is patient prescribed a controlled substance at d/c from ED?: No Referrals: Latrell Kevin MD [Primary Care Provider] - 1-2 days Time of Disposition: 14:58
[2024-07-14 15:10] VITALS: BP 122/71; PULSE 75
[2024-07-14 20:41] LABS: Urine Alcohol Negative (Negative); Urine Barbiturate Negative (Negative); Urine Cocaine Negative (Negative); Urine Methadone Negative (Negative); Urine Opiates Negative (Negative); Urine Phencyclidine Negative (Negative)
== END 2024-07-14 15:10 | disposition home or self-care (01) ==
LOC: EC 11:01
CPT/HCPCS: 80306; 82075; 87635; 99285